=== PATIENT | female | born 1955 | race Caucasian/White ===

== ENCOUNTER → 2018-10-30 09:26 | Outpatient (CLI) | payer OTHER, SELFPAY ==
--- NOTE | 2018-10-30 09:31 | US_ITS ---
STUDY: ABDOMINAL ULTRASOUND - RIGHT UPPER QUADRANT REASON FOR VISIT: Female, 63 years old. Elevated liver enzymes TECHNIQUE: Ultrasound evaluation of the right upper quadrant was performed with real-time and static rubio-scale imaging. TECHNICAL QUALITY: Adequate. COMPARISON: None. FINDINGS: Liver: The liver measures 17.6 cm. There is increased echogenicity consistent with fatty infiltration. The bile ducts are within normal limits. There is hepatic color flow. The direction of portal flow is hepatopetal. There is no demonstrated mass lesion. Gallbladder: Normal distended gallbladder. The gallbladder wall measures 1.8 mm. There is a negative sonographic Dias's sign. There is no pericholecystic fluid. There are no gallstones. Common Bile Duct (C.B.D.): The common bile duct measures 3.1 mm. Pancreas: Normal size of the head, body and tail of the pancreas. There is normal echogenicity of the pancreas. There is no demonstrated pancreatic mass or cyst. Right Kidney: Normal size of the right kidney. The right kidney measures 10.6 x 6.1 x 4.5 cm. Normal renal cortex. The right cortex measures 1 cm. There is no demonstrated renal mass or cyst. There is no right hydronephrosis. US/Abdomen Limited IMPRESSION: Fatty liver. Gallbladder and common bile duct are unremarkable. Electronically Signed: Vipul Bryan MD at 13:31 EDT Tel , Service support ,
== END ==
PROVIDERS: Family Provider Family Medicine; PCP Family Medicine; Referring Provider Family Medicine; Visit Provider Family Medicine
DX: R94.5 Abnormal results of liver function studies (principal)
CPT/HCPCS: 76705

== ENCOUNTER → 2018-11-14 07:50 | Outpatient (CLI) | payer OTHER, SELFPAY ==
--- NOTE | 2018-11-14 08:03 | BI_ITS ---
MAMMOGRAPHY - BILATERAL SCREENING REASON FOR EXAM: Female, 63 years old. Routine annual screening examination. PERTINENT HISTORY: Aunt with breast cancer. Prior right stereotactic breast biopsies and left excisional breast biopsy. TECHNIQUE: Digital bilateral breast milagros (3D mammographic acquisition) in the CC and MLO projections. 2-D mediolateral oblique (MLO) and craniocaudad (CC) views of both breasts were obtained. CAD: Full Field Digital Mammography with Computer Added Detection was performed. COMPARISON: Comparison is made with prior examination dated January 01, 2017 and July 19, 2013. FINDINGS: Breast Composition: The breasts are heterogeneously dense, which may obscure small masses. There are no dominant masses or suspicious calcifications. There are 2 tissue clip markers in the superior retroareolar region of the right breast. A tissue clip marker is also seen in a 7.8 mm well-defined nodule in the inferior deep slightly medial aspect of the right breast. This is new as compared to prior study. No other significant abnormalities are identified. There has been no significant change since the prior study. BI/SCREENING MAMM (CAD), BILAT IMPRESSION: Stable bilateral screening mammogram. Yearly follow-up mammogram recommended. (A) ASSESSMENT CATEGORY: BIRADS Category 2: Benign. A letter regarding these results will be sent to the patient by the facility within 30 days. Approximately 10% of breast cancers are not detected by mammography. A normal mammogram should not delay biopsy of a clinically suspicious abnormality. [id number] Electronically Signed: Karan Prado, at 8:52 EDT , Service support ,
== END ==
PROVIDERS: Family Provider Family Medicine; PCP Family Medicine; Referring Provider Family Medicine; Visit Provider Family Medicine
DX: Z12.31 Encounter for screening mammogram for malignant neoplasm of breast (principal)
CPT/HCPCS: 77063; 77067

== ENCOUNTER → 2018-11-28 11:12 | Outpatient (CLI) | payer OTHER, SELFPAY ==
[2018-11-23 09:00] VITALS: BMI 32.8
--- NOTE | 2018-11-28 11:13 | NM_ITS ---
CLINICAL: 63-year-old female with reported history of postprandial abdominal pain. RADIONUCLIDE HEPATOBILIARY SCINTIGRAPHY COMPARISON: Abdominal ultrasound report 10/30/2018 FINDINGS: Following the intravenous administration of 5.4 mCi of 99m Tc Mebrofenin, hepatobiliary images reveal: 1. Relatively prompt and homogeneous radiopharmaceutical concentration is noted by a normal sized liver. No parenchymal defects are identified. 2. Gallbladder activity is identified at 45 minutes post radiopharmaceutical administration. 3. Small intestinal tract is observed at 10 minutes following tracer injection. 4. Washout of the radiopharmaceutical by the hepatic parenchyma appears qualitatively normal. Cholecystokinin (0.02 ug/kg) was administered intravenously over a 30-minute period. The post CCK gallbladder ejection fraction calculated at 20 minutes following Cholecystokinin administration was noted to be < 5 % (normal greater than 35%). There is scintigraphic evidence of post cholecystokinin duodenal-gastric reflux. NM/Hepatobilliary Img w/Pharm Int IMPRESSION: 1. ABNORMAL 99m Tc Mebrofenin hepatobiliary imaging examination with Cholecystokinin. A. A gallbladder ejection fraction calculated to be less than 35% following the administration of Cholecystokinin is consistent with the presence of functional hepatobiliary disease (gallbladder and/or sphincter of Oddi dyskinesia) and/or organic hepatobiliary disease (chronic acalculous cholecystitis and/or cystic duct syndrome) in patients with intermediate to high pretest probabilities of hepatobiliary illness. (Ritu Hebert et al, Journal of Nuclear Medicine 32:1695, 1990). B. There is scintigraphic evidence of post CCK duodenal-gastric reflux as described above. (Destin et al, Nucl Med Kathe [employer] pg. 35, 1980). Electronically Signed: Antione Thorne DO at 10:50 EDT Tel , Service support ,
== END ==
PROVIDERS: Family Provider Family Medicine; PCP Family Medicine; Referring Provider Surgery; Visit Provider Surgery
DX: R10.13 Epigastric pain (principal)
CPT/HCPCS: 78227; A9537; J2805

== ENCOUNTER 2018-11-30 08:20 | Day surgery (SDC) | payer OTHER, SELFPAY ==
--- NOTE | 2018-11-23 03:23 | HP_ITS ---
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 Is patient in pain?: No Allergies nitrile Allergy (Severe, Verified 11/23/18 09:19) shortness of breath and rash dexlansoprazole [From Dexilant] Allergy (Mild, Verified 11/23/18 09:02) Unknown pravastatin [From Pravachol] Allergy (Mild, Verified 11/23/18 09:02) Other Medications albuterol sulfate HFA 90 mcg/actuation aerosol inhaler 1 puff INHALATION Q6H PRN 11/23/18 [History Confirmed 11/23/18] esomeprazole magnesium 20 mg capsule,delayed release 20 mg PO DAILY cap 11/23/18 [History Confirmed 11/23/18] metronidazole 1 % topical gel 1 applic TOPICAL DAILY 11/23/18 [History Confirmed 11/23/18] montelukast 10 mg tablet 10 mg PO QPM 11/23/18 [History Confirmed 11/23/18] prednisone 20 mg tablet 40 mg PO ONCE #2 tab 11/23/18 [Rx Confirmed 11/23/18] ranitidine 150 mg tablet 150 mg PO DAILY 11/23/18 [History Confirmed 11/23/18] PFSH Medical History Acid reflux (Acute) Asthma (Acute) Environmental allergies (Acute) Surgical History Benign neoplasm of parotid gland (Acute) S/P lumpectomy, left breast (Acute) S/P tonsillectomy (Acute) S/P wisdom tooth extraction (Acute) Family History Father Hypertension Kidney disease Mother Diabetes Hypertension Thyroid disorder Grandmother Breast cancer Brother Heart disease Aunt Breast cancer Social History Smoking Status: Never smoker alcohol intake: never HPI HPI HPI: JASMINE MICHELLE is a 63 F who presents to the office today for HPI HPI Surgical H&P: Yes HPI: JASMINE MICHELLE, is a 63 F who presents to the office today for surgical consultation regarding epigastric pain and a positive Cologuard test. 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 She has had 2-month history of quite significant respiratory illness with upper respiratory tract infection aggravation of her asthma with bronchitis chronic sinusitis. She had been on steroids and increased inhaler therapy and antibiotics per for period of time she had been increasing her naproxen therapy. She then developed bandlike pain in the epigastrium. As of October 30, 2018 Dr. Gary Boogie obtained a gallbladder ultrasound at the [facility] this was normal.. October 17, 2018 liver hepatitis profile was normal. Liver function test notable for total bilirubin 0.5 alkaline phosphatase 631 AST 43 ALT 75. White blood cell count was 5000 with a hemoglobin 13.8 hematocrit 41.4 and platelet count 176,000 and a normal differential 5 to 6 years she has been on Nexium therapy. Because of the increased epigastric pain she was placed on ranitidine as well. In addition she was placed on Nasacort to help with her respiratory problems. She changed her diet to more of a bland diet trying to encourage use of yogurt but still had episodes of burning epigastric pain and nausea. She goes on to explain that the been a lot of stress recently particularly in caretaking for her mother. She has never previously had a colonoscopy. She has not previously had an upper endoscopy. She is concerned about any oral pharyngeal manipulation stating that this very frequently will acutely aggravate her chronic asthma. From her description of requiring high-dose steroids and inhalers and antibiotics she has recently come off 2 months of significant respiratory compromise. ROS General General: Yes weight change; no appetite, fatigue, colon cancer, breast cancer or weakness HEENT HEENT: No difficulty swallowing, eye injury, eye surgery, swollen glands or hoarseness Endo Endocrine: No thyroid disease, diabetes mellitus, thyroid cancer, Hair loss, heat intolerance or cold intolerance Skin Skin: Yes rash; no changing moles Breast Breast: No left breast lump, right breast lump, nipple discharge, breast pain, abnormal mammogram, abnormal US or breast enlargement Musc Musculoskeletal: Yes arthritis; no back problems, rheumatoid arthritis, gout or joint pain Cardio Cardiovascular: No murmur, pacemaker, heart disease, atrial fibrillation, high blood pressure, heart attack, heart stent, palpitations, shortness of breat with exertion or chest pain Psych Psychiatric: No depression, anxiety or hearing voices Resp Respiratory: No shortness of breath, No sleep apnea, Yes cough, No COPD, Yes asthma, No emphysema, No wheezing Gastro Gastrointestinal: Yes abdominal pain, Yes nausea or vomiting, No diarrhea, No constipation, No blood in stool, Yes acid reflux, Yes hemorrhoids, No ulcers, No gallbladder problem, No black,tarry stools Ken Hematologic: No blood thinners, No blood disorders, No bleeding, No anemia, No blood clots Neuro Neurologic: No system reviewed and no additional complaints, except as docu, No as per HPI, No abnormal walking, No abnormal hearing, No abnormal movements, No abnormal speech, No behavioral changes, No burning sensations, No confusion, No seizure-like activity, No unsteadiness, No dizziness, No localized weakness, No frequent falls, No headache(s), No lack of coordination, No loss of vision, No memory loss, No numbness, No other visual disturbances, No radiating pain, No restless legs, No sensory deficit, No fainting, No tingling, No tremor(s), No weakness, No other Exam Const General: cooperative, comfortable, no acute distress Nutritional Appearance: overweight Orientation: alert, awake, oriented x3 HENMT Head: normal to inspection Eyes General: appearance normal, both eyes and all related structures Chest Chest palpation & inspection: normal inspection of the chest Breast Palpation: No nipple discharge Resp Other: Clear throughout. Slightly diminished respiratory excursion Cardio Rate: regular rate Rhythm: regular rhythm Heart Sounds: no murmurs GI Palpation: soft, no hepatosplenomegaly Auscultation: normal bowel sounds Musc Cervical Spine: normal cervical lordosis Neuro Cognition: normal cognition Extrem General: no calf tenderness bilaterally Psych Affect: normal affect Assessment & Plan Problems 1. Epigastric pain R10.13 2. Positive colorectal cancer screening using Cologuard test R19.5 3. Asthma, unspecified asthma severity, unspecified whether complicated, unspecified whether persistent J45.909 Plan 63-year-old female. Two-point history of asthma exacerbation. Long-term use of proton pump inhibitors with addition of H2 feng to assist with epigastric pain with burning but also bandlike quality and unremarkable ultrasound. Abnormal liver function tests of undetermined etiology. I recommend a hepatobiliary scan to evaluate epigastric pain and because of the patient's abnormal liver function tests. I recommend a combined esophagogastroduodenoscopy with possible biopsy as well as colonoscopy with possible biopsy or polypectomy as indicated. She is aware of the technique, benefit, risks, alternatives. Because of the patient's asthma aggravation particularly with manipulation of the oropharynx I discussed her situation with Dr. Jaleel Bean anesthesiology who recommended the patient take prednisone 40 mg the day prior and that she would receive DuoNeb inhaler treatment prior to the procedure and that the monitored anesthesia care that would be utilized would be slightly deeper all an attempt to facilitate her periprocedural management. She is comfortable with this and we will schedule and proceed as noted. CC:Dr Gary Avalos M.D., F.A.C.S. Orders Orders: Colonoscopy Today R19.5 EGD Today R10.13 Hepatobilliary Img w/Pharm Int Today R10.13 Medications New: prednisone day prior to EGD 40 mg (2 x 20 mg) PO ONCE 2 tabs 0RF Coding Level of Care Code Off vis,new,level 3 Diagnoses Epigastric pain R10.13 ??Abdominal location: epigastric Positive colorectal cancer screening using Cologuard test R19.5 Asthma, unspecified asthma severity, unspecified whether complicated, unspecified whether persistent J45.909 ??Asthma severity: unspecified severity ??Asthma persistence: unspecified ??Asthma complication type: unspecified 11/23/18 1524 <Electronically signed by Ryan Avalos MD> Date Ryan Avalos MD I have re-examined the patient. There are no clinical changes since date of exam.
[2018-11-23 09:00] VITALS: BMI 32.8
[2018-11-30] VITALS (8 sets, daily range): BP systolic 104–167; BP diastolic 43–76; PULSE 72–88; RESP 16–18; TEMP 36.1–36.7; O2SAT 96–100; BMI 34.2
--- NOTE | 2018-11-30 | GASB_PTH ---
PATIENT: JASMINE MICHELLE LOC: EN U#:[id number] AGE/SX: 63/F ROOM: RE11/30/[address]: Dr. Ryan Avalos MD : 1955 BED: DIS: 11/30/2018 SPEC #: [id number] RECD: 11/30/18 12:28 STATUS: MARIAA MISBAH #: [id number] SOPHIA: 11/30/18 00:[address]: Ryan Avalos DEPT: SURGICAL PATHOLOGY RECD BY: Ritchie Medina ENTERED: 11/30/18 12:30 SP TYPE: Gastric Bx OTHR DR: Dr. Gary Boogie MD Tissues: A - Gastric mucous membrane B - Esophagus, NOS C - Cecum, NOS D - Transverse colon E - Transverse colon F - Descending colon Procedures: Surgery Specimen Level IV HEADER OPERATION: Colonoscopy, EGD ([facility]) PRE-OP DIAGNOSIS: Epigastric pain, positive Cologuard test TISSUE SUBMITTED: A - Antral biopsy and H. pylori, B - Distal esophageal biopsy, C - Cecal polyp, D - Mid transverse mass, E - Distal transverse polyp x3, F - Polyp descending colon MICROSCOPIC DIAGNOSIS A. Gastric antrum, biopsy: Mild to moderate chronic gastritis. Focal intestinal metaplasia without dysplasia. See comment. B. Distal esophagus, biopsy: No pathologic diagnosis. C. Cecal polyp, biopsy: Fragments of tubulovillous adenoma. D. Mid transverse colon mass, biopsy: Fragments of tubulovillous adenoma. E. Distal transverse colon polyp, biopsy: Fragments of tubular adenoma. F. Descending colon polyp, biopsy: Tubular adenoma. AM:cookie 12/04/18 COMMENT A. The results of immunohistochemistry for Helicobacter pylori will be reported separately ([id number]). MICROSCOPIC DESCRIPTION Slides are reviewed. GROSS DESCRIPTION A - Received in fixative is one container labeled with the patient's name and designated gastric antrum. The specimen consists of one irregular fragment of light darling soft tissue that measures 0.6 x 0.3 x 0.1 cm. The specimen is totally submitted in one cassette. B - Received in fixative is one container labeled with the patient's name and designated distal esophagus. The specimen consists of one irregular fragment of light darling soft tissue that measures 0.3 x 0.2 x <0.1 cm. The specimen is totally submitted in one cassette. C - Received in fixative is one container labeled with the patient's name and designated cecal polyp. The specimen consists of multiple irregular fragments of light darling soft tissue that in aggregate measure 0.5 x 0.2 x 0.1 cm. The specimen is totally submitted in one cassette. D - Received in fixative is one container labeled with the patient's name and designated transverse mass. The specimen consists of multiple irregular fragments of light darling soft tissue that in aggregate measure 0.5 x 0.2 x <0.1 cm. The specimen is totally submitted in one cassette. E - Received in fixative is one container labeled with the patient's name and designated distal transverse polyp. The specimen consists of multiple irregular fragments of light darling soft tissue that in aggregate measure 1.5 x 0.8 x 0.1 cm. The specimen is totally submitted in one cassette. F - Received in fixative is one container labeled with the patient's name and designated polyp descending colon. The specimen consists of one irregular fragment of light darling soft tissue that measures 0.2 x 0.2 x <0.1 cm. The specimen is totally submitted in one cassette. / AM:cookie 11/30/18 TC:5 CPT: 74948 x6
--- NOTE | 2018-11-30 09:15 | IMM_PTH ---
PATIENT: JASMINE MICHELLE LOC: EN U#:[id number] AGE/SX: 63/F ROOM: RE11/30/[address]: Dr. Ryan Avalos MD : 1955 BED: DIS: 11/30/2018 SPEC #: [id number] RECD: 11/30/18 14:37 STATUS: MARIAA RETamara #: [id number] SOPHIA: 11/30/18 09:[address]: Ryan Avalos DEPT: IMMUNOHISTOCHEMISTRY RECD BY: Hali Griffin ENTERED: 11/30/18 14:38 SP TYPE: IMMUNO OTHR DR: Dr. Gary Boogie MD Tissues: A - Stomach, NOS Procedures: H Pylori (initial) PHYSICIAN & INSTITUTION [place] [id number] SPECIMEN INFORMATION: Tissue Source: A - Antral biopsy Clinical Info: Epigastric pain, positive Cologuard test Specimen Number: [id number] CPT code: 26287 METHODOLOGY: Deparaffinized sections of prefer/formalin-fixed tissue or PAP/DQ stained slides are incubated with monoclonal/polyclonal antibodies/oligonucleotide probes. Localization is made via biotin free immunoperoxidase method. Appropriate controls are performed and reacted as expected. Results on target cell population are indicated in the following table: RESULTS: ANTIBODY / CLONE RESULT Block A H Pylori (polyclonal) negative These tests were developed and their performance characteristics determined by [facility]. They may not have been cleared or approved by the U.S. Food and Drug Administration. The FDA has determined that such clearance or approval is not necessary. INTERPRETATION: A. Antral biopsy: Negative for Helicobacter pylori organisms. AM:cookie 12/04/18
--- NOTE | 2018-11-30 10:27 | RAD_ITS ---
STUDY: X-RAY - ABDOMEN/PELVIS REASON FOR EXAM: Female, 63 years old. Abdominal pain. Staple placement. TECHNIQUE: Single AP view of the abdomen / pelvis. COMPARISON: None. FINDINGS: Gas is seen in the right hemicolon. A tissue clip marker is seen in the proximal transverse colon just distal to the hepatic flexure. The visualized liver, spleen and kidneys are grossly normal in size and morphology. Normal soft tissue structures. Degenerative changes of symphysis pubis. RAD/Abdomen Single View (Portable) IMPRESSION: A metallic marker is seen in the proximal transverse colon just distal to the hepatic flexure. Electronically Signed: Karan Prado, at 11:44 EDT , Service support ,
--- NOTE | 2018-11-30 10:36 | OP.ENDO_ITS ---
11/30/2018 Gary Boogie Re : Upper GI endoscopy procedure for Earlene Lopez Dear Chuyita This procedure was performed on Friday, November 30, 2018. My impressions and recommendations are as follows: Impressions : - Z-line regular, 40 cm from the incisors. Biopsied. - Small hiatal hernia. - Erythematous mucosa in the antrum. Biopsied. - Normal examined duodenum. Recommendations : - Discharge patient to home. - Resume previous diet. - Continue present medications. - Return to my office in 1 week. My findings are described in the full procedure note, which is enclosed. If I can be of further assistance, please feel free to contact me at Doctor phone number(s): Work: . Sincerely, Ryan Avalos MD 11/30/2018 10:35:52 AM This report has been signed electronically.
--- NOTE | 2018-11-30 10:43 | OP.ENDO_ITS ---
11/30/2018 Gary Boogie Re : Colonoscopy procedure for Earlene Armstrong Opaldemetriceelizabeth This procedure was performed on Friday, November 30, 2018. My impressions and recommendations are as follows: Impressions : - Hemorrhoids found on perianal exam. - Two 5 to 8 mm polyps in the cecum, removed with a cold biopsy forceps. Incomplete resection. Resected tissue retrieved. - One 45 mm polyp in the mid transverse colon. Biopsied. Tattooed. Clip was placed. - Three 4 to 7 mm polyps in the distal transverse colon, removed with a cold biopsy forceps. Resected and retrieved. - One 4 mm polyp in the descending colon, removed with a cold biopsy forceps. Resected and retrieved. Recommendations : - Discharge patient to home. - Resume previous diet. - Continue present medications. - Repeat colonoscopy in 1 year for surveillance. - Return to my office in 1 week to consider laparoscopic extended right colectomy with cholecystectomy My findings are described in the full procedure note, which is enclosed. If I can be of further assistance, please feel free to contact me at Doctor phone number(s): Work: . Sincerely, Ryan Avalos MD 11/30/2018 10:42:18 AM This report has been signed electronically.
--- NOTE | 2018-12-13 07:30 | COL_PTH ---
PATIENT: JASMINE MICHELLE LOC: EN U#:[id number] AGE/SX: 63/F ROOM: RE11/30/[address]: Dr. Ryan Avalos MD : [id number] BED: DIS: 11/30/2018 SPEC #: [id number] RECD: 12/13/18 10:48 STATUS: MARIAA CRAWLEY #: [id number] SOPHIA: 12/13/18 07:[address]: Ryan Avalos DEPT: SURGICAL PATHOLOGY RECD BY: Nneka Ramirez ENTERED: 12/13/18 13:40 SP TYPE: COLON OTHR DR: Dr. Gary Boogie MD Tissues: A - Colon, NOS B - Gallbladder, NOS Procedures: Surgery Specimen Level III Surgery Specimen Level V HEADER OPERATION: ERAS, Laparoscopic cholecystectomy PRE-OP DIAGNOSIS: Epigastric pain R10.13, positive colorectal cancer screening using colorectal test R19.5 TISSUE SUBMITTED: A. Right colon tissue, staple line, B. Gallbladder MICROSCOPIC DIAGNOSIS A. Right colon, hemicolectomy: Tubulovillous adenoma with focal high grade dysplasia (5 cm in greatest dimension). Tubulovillous adenoma (1 cm in greatest dimension). Eleven pericolonic lymph nodes with reactive changes. Anastomotic line, no pathologic diagnosis. B. Gallbladder, cholecystectomy: Chronic cholecystitis and cholesterolosis. No stones are identified in the container or in the gallbladder. SJ:cookie 12/17/18 COMMENT Please make reference to previous specimen ([id number]), cecal polyp, biopsy with diagnosis of fragments of tubulovillous adenoma and mid transverse colon mass, biopsy with diagnosis of fragments of tubulovillous adenoma and distal transverse colon polyp, biopsy with diagnosis of fragments of tubular adenoma and descending colon polyp, biopsy with diagnosis of tubular adenoma. Case has been reviewed in consultation with Dr. Navarro who concurs with the above diagnosis. IDC:AM MICROSCOPIC DESCRIPTION Slides are reviewed. GROSS DESCRIPTION A - Received in fixative is one container labeled with the patient's name and designated right colon tissue and staple line. The specimen consists of a right hemicolectomy specimen with attached adipose tissue and omentum consisting of cecum with ascending colon and segment of small intestine. The appendix is not identified. The cecum with ascending colon measures 22 cm in length and segment of small intestine measures 5.5 cm in length. Both resection margins are stapled. Two polyps are identified. The lumen is filled with bloody fluid. The larger polyp is present 5 cm away from the distal resection margin and measures 5 x 3 x 3 cm and one smaller polyp is present in the cecum 5 cm away from the ileocecal valve and measures 1 x 1 x 0.5 cm. The serosal surface overlying the larger polyp shows dye discoloration. The attached omentum measures 22 x 5 x 2 cm. Also present in the container is a staple line measuring 5 x 0.2 x 0.2 cm. More dictation will follow later. The pericolonic adipose is fixed in lymph node revealing solution. / SJ:rg 12/13/18 Sections of both polyps reveal entirely mucosal in location. No invasion into the underlying wall is noted. Sections of the omentum do not reveal any mass lesion. Sections of pericolonic adipose tissue reveal multiple lymph nodes. The largest lymph node measures 0.8 cm in greatest dimension. Digital Account Executive sections are submitted as follows: 1 - anastomotic line, 2 - proximal and distal resection margins, 3 - smaller polyp in the cecum, entirely submitted, 4-9 - larger polyp (cassettes 4-7 contains the stalk portion of the polyp, entirely submitted; about 80% of the polyp is submitted), 10 - ileocecal valve, small and large intestine, 11 - omentum, 12 - multiple lymph nodes, 13 - multiple lymph nodes, 14 - one bisected lymph nodes, 15 - one lymph node and two possible lymph nodes. / SJ:rg 12/14/18 B - Received is one container labeled with the patient's name and designated gallbladder. The specimen consists of a gallbladder measuring 7 cm in length and up to 3.5 cm in diameter. The external surface is pink-darling, smooth and glistening for the most part. Focally it is granular, hemorrhagic and contains cautery artifact. The gallbladder contains green-yellow mucoid bile. No stones are identified in the container or in the gallbladder. The mucosa also shows several yellowish streaks consistent with cholesterolosis. A few minute polyps consistent with cholesterolosis are also noted measuring 0.1 cm in greatest dimension. The gallbladder wall measures up to 0.3 cm in thickness. Digital Account Executive sections from the gallbladder and the cystic duct are submitted in one cassette. / CRIS:cookie 12/13/18 TC:1 CPT: 03408, 53557
== END 2018-11-30 11:24 | disposition home or self-care (01) ==
LOC: EN 08:21 → AC 08:22
PROVIDERS: Family Provider Family Medicine; PCP Family Medicine; Referring Provider Family Medicine; Visit Provider Surgery
PROC: 0DJD8ZZ Inspection of Lower Intestinal Tract, Via Natural or Artificial Opening Endoscopic (ICD-10-PCS; CPT 45378; principal; 2018-11-30 09:10)
DX: D12.0 Benign neoplasm of cecum (principal); D12.3 Benign neoplasm of transverse colon; D12.4 Benign neoplasm of descending colon; K29.50 Unspecified chronic gastritis without bleeding; K44.9 Diaphragmatic hernia without obstruction or gangrene; K64.9 Unspecified hemorrhoids; K21.9 Gastro-esophageal reflux disease without esophagitis; J45.909 Unspecified asthma, uncomplicated; Z79.52 Long term (current) use of systemic steroids; Z79.899 Other long term (current) drug therapy; Z87.442 Personal history of urinary calculi
CPT/HCPCS: 43239; 45380; 45381; 74018; 88304; 88305; 88307; 88342; 94640; J7120; A4216; A4648; J2405

== ENCOUNTER 2018-12-13 05:36 | Inpatient (IN) | payer OTHER, SELFPAY ==
[2018-11-30 08:49] VITALS: BMI 34.2
[2018-12-06 10:08] VITALS: BMI 34.2
[2018-12-07 10:40] VITALS: BP 174/88; PULSE 75; RESP 16; TEMP 37.4; O2SAT 99; BMI 34.7
--- NOTE | 2018-12-07 10:57 | SDCEKG_ITS ---
Test Reason : Blood Pressure : / mmHG Vent. Rate : 075 BPM Atrial Rate : 075 BPM P-R Int : 160 ms QRS Dur : 096 ms QT Int : 384 ms P-R-T Axes : 039 028 037 degrees QTc Int : 428 ms Sinus rhythm with Premature ventricular complexes Otherwise normal ECG Confirmed by DANNA MILLER, MARY ([id number]), marketing editor TIFFANIE ALEGRE ([id number]) on 12/19/2018 1:34:35 PM Referred By: Ryan Avalos Confirmed By:MARY CLAY MD
--- NOTE | 2018-12-07 11:15 | RAD_ITS ---
STUDY: X-RAY CHEST REASON FOR EXAM: Female, 63 years old. Preoperative evaluation. TECHNIQUE: PA and lateral views of the chest. COMPARISON: None. FINDINGS: The lungs are clear and expanded. Scattered calcified granulomas. There is no demonstrated pleural abnormality. Normal size heart. Normal mediastinum and dong. Normal visualized pulmonary arteries. Normal visualized aortic arch and descending thoracic aorta. There are degenerative changes of the visualized thoracic spine. Normal visualized ribs, clavicles, and shoulders. There is no demonstrated abnormality of the visualized soft tissue structures of the upper abdomen. RAD/Chest PA and Lateral IMPRESSION: Normal x-ray examination of the chest. Electronically Signed: Karan Prado, at 13:12 EDT , Service support ,
[2018-12-07 11:31] LABS: Absolute Lymphocyte Count 1.97 X10^3/ul (0.83-4.51); Absolute Neutrophil Count 3.6 X10^3/uL (2.0-7.7); Basophil# 0.03 X10^3/uL; Basophil% 0.5 % (0-1); Eosinophil# 0.22 X10^3/uL; Eosinophils% 3.4 % (0-5); Hematocrit 44.1 % (37-47); Hemoglobin 14.8 g/dl (12.0-15.0); Lymphocyte # 1.97 X10^3/ul (4.0); Lymphocyte % 30.7 % (19-41); Mean Corp Hgb Conc 33.6 g/gl (32-36); Mean Corpuscular Hgb 29.1 pg (27.0-32.0); Mean Corpuscular Volume 86.6 fL (81-99); Mean Platelet Vol. 10.6 fl (6.2-12.0); Monocyte# 0.56 X10^3/uL; Monocyte% 8.7 % (0-10); Neutrophil # 3.62 X10^3/uL (2.7-7.7); Neutrophil % 56.5 % (47-70); Platelet Count 217 K/mm3 (150-450); RBC Distribution Width CV 12.8 % (11.6-14.6); Red Blood Count 5.09 M/mm3 (4.2-5.4); White Blood Count 6.4 K/mm3 (4.4-11.0)
[2018-12-07 11:35] LABS: POSITIVE COUNT NO; POSITIVE DIFFERENTIAL NO; POSITIVE MORPHOLOGY NO
[2018-12-07 12:02] LABS: Anion Gap 6 (5-15); BUN 8 mg/dL (7-18); BUN/Creat Ratio 8.7 RATIO (10-20); Calcium,Total 9.2 mg/dL (8.5-10.1); Chloride 109 mmol/L (98-107); Creatinine, Serum 0.92 mg/dL (0.55-1.02); EST Glomerular Filtration Rate 66 mL/min (>60); Est Glom Filt Rate - Afr Amer 80 mL/min (>60); Estimated Creatinine Clearance 64.78 ml/min; Glucose 123 mg/dL (74-106); Potassium 3.8 mmol/L (3.5-5.1); Sodium Level 143 mmol/L (136-145)
[2018-12-13] VITALS (14 sets, daily range): BP systolic 108–162; BP diastolic 55–85; PULSE 60–93; RESP 16–20; TEMP 36.3–37.4; O2SAT 98–100; BMI 34.7
--- NOTE | 2018-12-13 05:52 | HP.PCM_ITS ---
Problem List (1) Cholecystitis Status: Acute (2) Tubulovillous adenoma of colon Status: Acute History and Physical Date of Admission: 12/13/18 MR#: [id number] Acct: [id number] Name: EARLENE MICHELLE Rep #: [id number] : 1955 Provider: Ryan Avalos MD Age/Sex: 63/F Location: [facility] Status: Signed Intake Vital Signs 12/06/18 Body Mass Index (BMI) 34.2 Intake Visit Reasons: c-scope 11/30/18/to discuss surgery & GB Allergies nitrile Allergy (Severe, Verified 11/30/18 08:45) shortness of breath and rash dexlansoprazole [From Dexilant] Allergy (Mild, Verified 11/30/18 08:45) Unknown erythromycin base Allergy (Verified 11/30/18 08:45) Rash Fish Containing Products Allergy (Verified 11/30/18 08:45) Rash fish derived Allergy (Verified 11/30/18 08:45) Rash fish oil Allergy (Verified 11/30/18 08:45) Rash lansoprazole [From Prevacid] Allergy (Verified 11/30/18 08:45) Other shellfish derived Allergy (Verified 11/30/18 08:45) Anaphylaxis Medications esomeprazole magnesium 20 mg capsule,delayed release 20 mg PO DAILY cap 11/23/18 [History Confirmed 11/27/18] metronidazole 1 % topical gel 1 applic TOPICAL DAILY 11/23/18 [History Confirmed 11/27/18] montelukast 10 mg tablet 10 mg PO QPM 11/23/18 [History Confirmed 11/27/18] prednisone 20 mg tablet 40 mg PO ONCE #2 tab 11/23/18 [Rx Confirmed 11/27/18] ranitidine 150 mg tablet 150 mg PO DAILY 11/23/18 [History Confirmed 11/27/18] Albuterol Aerosols [Ventolin Aerosols] 2.5 mg INHALATION Q6H PRN PRN 11/27/18 [History Confirmed 11/27/18] Albuterol IH (ProAir) [Proair Hfa (SP)Vent Pts] 1 - 2 puff INHALATION Q4H PRN PRN 11/27/18 [History Confirmed 11/30/18] PFSH Medical History Cholecystitis (Acute) Gastritis (Acute) Tubulovillous adenoma of colon (Acute) Asthma (Acute) Positive colorectal cancer screening using Cologuard test (Acute) Abdominal pain (Acute) Acid reflux (Acute) Asthma (Acute) Environmental allergies (Acute) Surgical History Benign neoplasm of parotid gland (Acute) History of colonoscopy (Acute ~11/30/18) History of esophagogastroduodenoscopy (EGD) (Acute ~11/30/18) S/P lumpectomy, left breast (Acute) S/P tonsillectomy (Acute) S/P wisdom tooth extraction (Acute) Family History Father Hypertension Kidney disease Mother Diabetes Hypertension Thyroid disorder Grandmother Breast cancer Brother Heart disease Aunt Breast cancer Social History Smoking Status: Never smoker alcohol intake: never HPI HPI HPI: EARLENE MICHELLE, is a 63 F who presents to the office today for HPI HPI Surgical H&P: Yes HPI: EARLENE MICHELLE, is a 63 F who presents to the office today for surgical follow-up regarding evaluation of epigastric pain as well as positive Cologuard test. My previous history and physical is as follows. Subsequent to that I will include the testing that ensued. 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 [employer] Member Required: No Is patient in pain?: No Allergies nitrile Allergy (Severe, Verified 11/23/18 09:19) shortness of breath and rash dexlansoprazole [From Dexilant] Allergy (Mild, Verified 11/23/18 09:02) Unknown pravastatin [From Pravachol] Allergy (Mild, Verified 11/23/18 09:02) Other Medications albuterol sulfate HFA 90 mcg/actuation aerosol inhaler 1 puff INHALATION Q6H PRN 11/23/18 [History Confirmed 11/23/18] esomeprazole magnesium 20 mg capsule,delayed release 20 mg PO DAILY cap 11/23/18 [History Confirmed 11/23/18] metronidazole 1 % topical gel 1 applic TOPICAL DAILY 11/23/18 [History Confirmed 11/23/18] montelukast 10 mg tablet 10 mg PO QPM 11/23/18 [History Confirmed 11/23/18] prednisone 20 mg tablet 40 mg PO ONCE #2 tab 11/23/18 [Rx Confirmed 11/23/18] ranitidine 150 mg tablet 150 mg PO DAILY 11/23/18 [History Confirmed 11/23/18] [facility] Medical History Acid reflux (Acute) Asthma (Acute) Environmental allergies (Acute) Surgical History Benign neoplasm of parotid gland (Acute) S/P lumpectomy, left breast (Acute) S/P tonsillectomy (Acute) S/P wisdom tooth extraction (Acute) Family History Father Hypertension Kidney disease Mother Diabetes Hypertension Thyroid disorder Grandmother Breast cancer Brother Heart disease Aunt Breast cancer Social History Smoking Status: Never smoker alcohol intake: never HPI HPI HPI: EARLENE MICHELLE, is a 63 F who presents to the office today for HPI HPI Surgical H&P: Yes HPI: EARLENE MICHELLE, is a 63 F who presents to the office today for surgical consu ltation regarding epigastric pain and a positive Cologuard test. 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 She has had 2-month history of quite significant respiratory illness with upper respiratory tract infection aggravation of her asthma with bronchitis chronic sinusitis. She had been on steroids and increased inhaler therapy and antibiotics per for period of time she had been increasing her naproxen therapy. She then developed bandlike pain in the epigastrium. As of October 30, 2018 Dr. Gary Boogie obtained a gallbladder ultrasound at the [facility] this was normal.. October 17, 2018 liver hepatitis profile was normal. Liver function test notable for total bilirubin 0.5 alkaline phosphatase 631 AST 43 ALT 75. White blood cell count was 5000 with a hemoglobin 13.8 hematocrit 41.4 and platelet count 176,000 and a normal differential 5 to 6 years she has been on Nexium therapy. Because of the increased epigastric pain she was placed on ranitidine as well. In addition she was placed on Nasacort to help with her respiratory problems. She changed her diet to more of a bland diet trying to encourage use of yogurt but still had episodes of burning epigastric pain and nausea. She goes on to explain that the been a lot of stress recently particularly in caretaking for her mother. She has never previously had a colonoscopy. She has not previously had an upper endoscopy. She is concerned about any oral pharyngeal manipulation stating that this very frequently will acutely aggravate her chronic asthma. From her description of requiring high-dose steroids and inhalers and antibiotics she has recently come off 2 months of significant respiratory compromise. ROS General General: Yes weight change; no appetite, fatigue, colon cancer, breast cancer or weakness HEENT HEENT: No difficulty swallowing, eye injury, eye surgery, swollen glands or hoarseness Endo Endocrine: No thyroid disease, diabetes mellitus, thyroid cancer, Hair loss, heat intolerance or cold intolerance Skin Skin: Yes rash; no changing moles Breast Breast: No left breast lump, right breast lump, nipple discharge, breast pain, abnormal mammogram, abnormal US or breast enlargement Musc Musculoskeletal: Yes arthritis; no back problems, rheumatoid arthritis, gout or joint pain Cardio Cardiovascular: No murmur, pacemaker, heart disease, atrial fibrillation, high blood pressure, heart attack, heart stent, palpitations, shortness of breat with exertion or chest pain Psych Psychiatric: No depression, anxiety or hearing voices Resp Respiratory: No shortness of breath, No sleep apnea, Yes cough, No COPD, Yes asthma, No emphysema, No wheezing Gastro Gastrointestinal: Yes abdominal pain, Yes nausea or vomiting, No diarrhea, No constipation, No blood in stool, Yes acid reflux, Yes hemorrhoids, No ulcers, No gallbladder problem, No black,tarry stools Ken Hematologic: No blood thinners, No blood disorders, No bleeding, No anemia, No blood clots Neuro Neurologic: No system reviewed and no additional complaints, except as docu, No as per HPI, No abnormal walking, No abnormal hearing, No abnormal movements, No abnormal speech, No behavioral changes, No burning sensations, No confusion, No seizure-like activity, No unsteadiness, No dizziness, No localized weakness, No frequent falls, No headache(s), No lack of coordination, No loss of vision, No memory loss, No numbness, No other visual disturbances, No radiating pain, No restless legs, No sensory deficit, No fainting, No tingling, No tremor(s), No weakness, No other Exam Const General: cooperative, comfortable, no acute distress Nutritional Appearance: overweight Orientation: alert, awake, oriented x3 HENMT Head: normal to inspection Eyes General: appearance normal, both eyes and all related structures Chest Chest palpation & inspection: normal inspection of the chest Breast Palpation: No nipple discharge Resp Other: Clear throughout. Slightly diminished respiratory excursion Cardio Rate: regular rate Rhythm: regular rhythm Heart Sounds: no murmurs GI Palpation: soft, no hepatosplenomegaly Auscultation: normal bowel sounds Musc Cervical Spine: normal cervical lordosis Neuro Cognition: normal cognition Extrem General: no calf tenderness bilaterally Psych Affect: normal affect Assessment & Plan Problems 1. Epigastric pain R10.13 2. Positive colorectal cancer screening using Cologuard test R19.5 3. Asthma, unspecified asthma severity, unspecified whether complicated, unspecified whether persistent J45.909 Plan 63-year-old female. Two-point history of asthma exacerbation. Long-term use of proton pump inhibitors with addition of H2 feng to assist with epigastric pain with burning but also bandlike quality and unremarkable ultrasound. Abnormal liver function tests of undetermined etiology. I recommend a hepatobiliary scan to evaluate epigastric pain and because of the patient's abnormal liver function tests. I recommend a combined esophagogastroduodenoscopy with possible biopsy as well as colonoscopy with possible biopsy or polypectomy as indicated. She is aware of the technique, benefit, risks, alternatives. Because of the patient's asthma aggravation particularly with manipulation of the oropharynx I discussed her situation with Dr. Jaleel Bean anesthesiology who recommended the patient take prednisone 40 mg the day prior and that she would receive DuoNeb inhaler treatment prior to the procedure and that the monitored anesthesia care that would be utilized would be slightly deeper all an attempt to facilitate her periprocedural management. She is comfortable with this and we will schedule and proceed as noted. CC:Dr Gary Avalos M.D., F.A.C.S. Orders Orders: Colonoscopy Today R19.5 EGD Today R10.13 Hepatobilliary Img w/Pharm Int Today R10.13 Medications New: prednisone day prior to EGD 40 mg (2 x 20 mg) PO ONCE 2 tabs 0RF Coding Level of Care Code Off vis,new,level 3 Diagnoses Epigastric pain R10.13 Abdominal location: epigastric Positive colorectal cancer screening using Cologuard test R19.5 Asthma, unspecified asthma severity, unspecified whether complicated, unspecified whether persistent J45.909 Asthma severity: unspecified severity Asthma persistence: unspecified Asthma complication type: unspecified 11/23/18 1524<Electronically signed by Ryan Avalos MD> Date Ryan Avalos MD Cosigner Signature:Date (if applicable) CC: Gary Boogie MD ~ [facility] Imaging Services [address] [place] [id number] Hepatobilliary Img w/Pharm Int MR#: [id number] Name: EARLENE MICHELLE [facility] #:[id number] : 8F [id number] From: Antione Thorne DO PCP:Gary Boogie MD Status:[facility] Study:Hepatobilliary Img w/Pharm Int Date of Exam:11/28/18 Exam#[id number] Ordering Dr: Ryan Avalos MD CLINICAL: 63-year-old female with reported history of postprandial abdominal pain. RADIONUCLIDE HEPATOBILIARY SCINTIGRAPHY COMPARISON: Abdominal ultrasound report 10/30/2018 FINDINGS: Following the intravenous administration of 5.4 mCi of 99m Tc Mebrofenin, hepatobiliary images reveal: 1. Relatively prompt and homogeneous radiopharmaceutical concentration is noted by a normal sized liver. No parenchymal defects are identified. 2. Gallbladder activity is identified at 45 minutes post radiopharmaceutical administration. 3. Small intestinal tract is observed at 10 minutes following tracer injection. 4. Washout of the radiopharmaceutical by the hepatic parenchyma appears qualitatively normal. Cholecystokinin (0.02 ug/kg) was administered intravenously over a 30-minute period. The post CCK gallbladder ejection fraction calculated at 20 minutes following Cholecystokinin administration was noted to be < 5 % (normal greater than 35%). There is scintigraphic evidence of post cholecystokinin duodenal-gastric reflux. NM/Hepatobilliary Img w/Pharm Int IMPRESSION: 1. ABNORMAL 99m Tc Mebrofenin hepatobiliary imaging examination with Cholecystokinin. A. A gallbladder ejection fraction calculated to be less than 35% following the administration of Cholecystokinin is consistent with the presence of functional hepatobiliary disease (gallbladder and/or sphincter of Oddi dyskinesia) and/or organic hepatobiliary disease (chronic acalculous cholecystitis and/or cystic duct syndrome) in patients with intermediate to high pretest probabilities of hepatobiliary illness. (Ritu Hebert et al, Journal of Nuclear Medicine 32:1695, 1990). B. There is scintigraphic evidence of post CCK duodenal-gastric reflux as described above. (Destin et al, Nucl Med Kathe [employer] pg. 35, 1980). Electronically Signed: Antione Thorne DO at 10:50 EDT Tel , Service support , [facility] Medical Records Department [address] [place] [address] Operative Report - Endoscopy MR#: [id number] Name: EARLENE MICHELLE [facility] #:[id number] : [id number]: Ryan Avalos MD PCP:Gary Boogie MD Status:[facility] 11/30/2018 Gary Boogie Re : Colonoscopy procedure for Earlene Michelle Dear Chuyita This procedure was performed on Friday, November 30, 2018. My impressions and recommendations are as follows: Impressions : - Hemorrhoids found on perianal exam. - Two 5 to 8 mm polyps in the cecum, removed with a cold biopsy forceps. Incomplete resection. Resected tissue retrieved. - One 45 mm polyp in the mid transverse colon. Biopsied. Tattooed. Clip was placed. - Three 4 to 7 mm polyps in the distal transverse colon, removed with a cold biopsy forceps. Resected and retrieved. - One 4 mm polyp in the descending colon, removed with a cold biopsy forceps. Resected and retrieved. Recommendations : - Discharge patient to home. - Resume previous diet. - Continue present medications. - Repeat colonoscopy in 1 year for surveillance. - Return to my office in 1 week to consider laparoscopic extended right colectomy with cholecystectomy My findings are described in the full procedure note, which is enclosed. If I can be of further assistance, please feel free to contact me at Doctor phone number(s): Work: . Sincerely, Ryan Avalos MD 11/30/2018 10:42:18 AM This report has been signed electronically. 11/30/18 1042 Date Ryan Avalos MD Cosigner Signature:Date (if indicated) CC: Gary Boogie MD; Ryan Avalos MD ~ Date Dictated:11/30/18 1002 Date Transcribed: Web Merchandiser:ODALYS Signed [facility] Medical Records Department [address] [place] [address] Operative Report - Endoscopy MR#: [id number] Name: EARLENE MICHELLE [facility] #:[id number] : [id number]: Ryan Avalos MD PCP:Gary Boogie MD Status:[facility] 11/30/2018 Gary Boogie Re : Upper GI endoscopy procedure for Earlene John Dear Chuyita This procedure was performed on Friday, November 30, 2018. My impressions and recommendations are as follows: Impressions : - Z-line regular, 40 cm from the incisors. Biopsied. - Small hiatal hernia. - Erythematous mucosa in the antrum. Biopsied. - Normal examined duodenum. Recommendations : - Discharge patient to home. - Resume previous diet. - Continue present medications. - Return to my office in 1 week. My findings are described in the full procedure note, which is enclosed. If I can be of further assistance, please feel free to contact me at Doctor phone number(s): Work: . Sincerely, Ryan Avalos MD 11/30/2018 10:35:52 AM This report has been signed electronically. 11/30/18 1035 Date Ryan Avalos MD [address] [facility] [address]PART[facility] LABORATORYSURGICAL [id number] [place], [place] [phone] Page 1of 2The contents of this transmission are privileged, confidential and exempt from disclosureunder applicable law. If you have received this information in error, call . EARLENE MICHELLE MR# [id number]: EARLENE MICHELLE/Sex: 63/[address]:Dina #: [id number] Unit #: [id number]: ENDOB: 1955Status:DEP SDCFacility:JOYCE Spec# :[id number] SpecDate: 11/30/18[facility] Dr: Bailey MILLER,[facility] Type: GASBOPERATION: Colonoscopy, EGD ([facility])PRE-OP DIAGNOSIS: Epigastric pain, positive Cologuard testTISSUE SUBMITTED: A ?Antral biopsy and H. pylori,B ?Distal esophageal biopsy, C ?Cecal polyp,D ?Mid transverse mass, E ?Distal transverse polyp x3, F ?Polyp descending colon MICROSCOPIC DIAGNOSISA. Gastric antrum, biopsy:Mild to moderate chronic gastritis. Focal intestinal metaplasia without dysplasia.See comment.B. Distal esophagus, biopsy:No pathologic diagnosis.C. Cecal polyp, biopsy:Fragments of tubulovillous adenoma.D. Mid transverse colon mass, biopsy:Fragments of tubulovillous adenoma.E. Distal transverse colon polyp,biopsy:Fragments of tubular adenoma.F. Descending colon polyp, biopsy:Tubular adenoma. AM:cookie 12/04/18COMMENTA. The results of immunohistochemistry for Helicobacter pylori will be reported separately ([id number]).MICROSCOPIC DESCRIPTIONSlides are reviewed.GROSS DESCRIPTIONA -Received in fixative is one container labeled with the patient's name and designated gastric antrum. The specimen consists of one irregular fragment of light darling soft tissue that measures 0.6 x 0.3 x 0.1 cm. Thespecimen is totally submitted in one cassette.B -Received in fixative is one container labeled with the patient's name and designated distal esophagus. The specimen consists of one irregular fragment of light darling soft tissue that measures 0.3 x 0.2 x<0.1 cm. The specimen is totally submitted in one cassette. [facility] LABORATORYSURGICAL [id number] [facility] [place], [place] [phone] Page 2of 2The contents of this transmission are privileged, confidential and exempt from disclosureunder applicable law. If you have received this information in error, call . EARLENE MICHELLE MR# [id number] - Received in fixative is one container labeled with the patient's name and designated cecal polyp. The specimen consists of multiple irregular fragments of light darling soft tissue that in aggregate measure 0.5 x 0.2 x 0.1 cm. The specimen is totally submitted in one cassette. D -Received in fixative is one container labeled with the patient's name and designated transverse mass. The specimen consists of multiple irregular fragments of light darling soft tissue that in aggregate measure 0.5 x 0.2 x <0.1 cm. The specimen is totally submitted in one cassette. E -Received in fixative is one container labeled with the patient's name and designated distal transverse polyp. The specimen consists of multiple irregular fragments of light darling soft tissue that in aggregate measure 1.5 x 0.8 x 0.1 cm. The specimen is totally submitted in one cassette. F -Received in fixative is one container labeled with the patient's name and designated polyp descending colon. The specimen consists of one irregular fragment of light darling soft tissue that measures 0.2 x 0.2 x <0.1 cm. The specimen is totally submitted in one cassette. / AM:cookie 11/30/18 TC:5CPT: [id number] x6 Electronically Signed by: Dr. Kenyon Navarro DO 05/28/19 1344 Be specific the patient had 2 cecal polyps which were tubulovillous adenoma. A large polyp in the proximal transverse colon which was a tubulovillous adenoma. This area was Josefina ink marked and marked with a clip. Plain abdominal films taken postsurgical demonstrate the marking clip to be in the proximal transverse colon. She had polyps in the distal transverse colon and the descending colon which were removed and were tubular adenomas. No evidence of malignancy was identified at the time of the biopsies but the proximal transverse colon polyp is very large. As noted preoperatively her Cologuard was positive. ROS General General: Yes weight change; no appetite, fatigue, colon cancer, breast cancer or weakness HEENT HEENT: No difficulty swallowing, eye injury, eye surgery, swollen glands or hoarseness Endo Endocrine: No thyroid disease, diabetes mellitus, thyroid cancer, Hair loss, heat intolerance or cold intolerance Skin Skin: Yes rash; no changing moles Breast Breast: No left breast lump, right breast lump, nipple discharge, breast pain, abnormal mammogram, abnormal US or breast enlargement Musc Musculoskeletal: Yes arthritis; no back problems, rheumatoid arthritis, gout or joint pain Cardio Cardiovascular: No murmur, pacemaker, heart disease, atrial fibrillation, high blood pressure, heart attack, heart stent, palpitations, shortness of breat with exertion or chest pain Psych Psychiatric: No depression, anxiety or hearing voices Resp Respiratory: No shortness of breath, No sleep apnea, Yes cough, No COPD, Yes asthma, No emphysema, No wheezing Gastro Gastrointestinal: Yes abdominal pain, Yes nausea or vomiting, No diarrhea, No constipation, No blood in stool, Yes acid reflux, Yes hemorrhoids, No ulcers, No gallbladder problem, No black,tarry stools Ken Hematologic: No blood thinners, No blood disorders, No bleeding, No anemia, No blood clots Neuro Neurologic: No weakness Exam Chest Breast Palpation: No nipple discharge Cardio Heart Sounds: no murmurs Assessment & Plan Problems 1. Tubulovillous adenoma of colon D12.6 2. Acute gastritis without hemorrhage, unspecified gastritis type K29.00 3. Cholecystitis K81.9 Plan 63-year-old female. Prior to her combined upper and lower endoscopy she took prednisone 40 mg orally the day prior and prior to her intervention she had a respiratory therapy administered protocol per anesthesia Dr. Jaleel Bean. The patient performed well with that procedure. She states that she has easy aggravation of her asthmatic bronchitis but this protocol helped alleviate that. Her upper endoscopy demonstrated H. pylori negative gastritis. Recommendations will be for her to continue ranitidine 150 mg orally in the morning and esomeprazole 20 mg in the evening. She is to continue this program through her tentative surgery date. The patient has absolutely nonfilling of her gallbladder on hepatobiliary imaging. I believe that her gallbladder is the etiology to her epigastric right upper quadrant pain. In detail with her present I described my recommendations for laparoscopic cholecystectomy with selective cholangiography. She is aware of the technique, benefit, risks, alternatives. I recommend that we combine this with her colon procedure. The patient had tubulovillous adenomas mostly resected from the cecum. She has a very large tubulovillous adenoma of the proximal transverse colon which was Josefina ink marked and marked with as hemostatic clip. I am recommending a extended right colectomy in combination with her cholecystectomy. The polyps that were identified in the left half of the colon were only tubular adenomas and I am recommending then strict postoperative follow-up colonoscopy at 1 year. Although no evidence of malignancy has been identified the polyp in the proximal transverse colon is very large and she is aware of the potential. I believe that I can offer her a combined laparoscopic right colectomy as well as laparoscopic cholecystectomy same setting. In detail we have discussed the technique, benefit, risks, alternatives I anticipate utilizing a enhanced recovery protocol. As noted above I recommend treating her asthma with a preoperative dose of steroids prednisone 40 mg day preop and will recommend respiratory therapy treatment prior to her general anesthesia. She has had an opportunity to ask and have questions answered. I am recommending that we pursue this 1 week from now. The patient will contact us as to whether she concurs or whether she wants to delay it until January. I appreciate the opportunity of assisting with her surgical care. CC: Dr. Gary Avalos M.D., F.A.C.S. Coding Level of Care Code Off vis,est,level 3 Diagnoses Tubulovillous adenoma of colon D12.6 Acute gastritis without hemorrhage, unspecified gastritis type K29.00 ??Gastritis type: unspecified gastritis ??Chronicity: acute ??Gastritis bleeding: without bleeding Cholecystitis K81.9 12/06/18 1018 <Electronically signed by Ryan Avalos MD> Date Ryan Joyner Signature: Date (if applicable) CC: Gary Boogie MD ~ I have re-examined the patient. There are no clinical changes since date of exam.
[2018-12-13] MEDS: Acetaminophen 500 MG Tablet 1000 MG PO (06:27)
[2018-12-13] MEDS: Gabapentin 600 MG Tablet PO (06:27)
[2018-12-13] MEDS: Lactated Ringers 1,000 ML 40 ML IV (06:32)
[2018-12-13] MEDS: Magnesium Sulfate 4gm/100mL 4 GM/100 ML IV.SOLN. IV (06:33)
[2018-12-13 06:36] LABS: Bedside Glucose 160 mg/dL (70-110)
[2018-12-13] MEDS: Ipratropium/Albuterol Sulfate 3 ML AMPUL.NEB INHALATION (07:00)
--- NOTE | 2018-12-13 07:32 | DCINST_ITS ---
Discharge Diet: Light diet - advance as tolerated - if you have questions about your diet instructions, please talk to you doctor. Discharge Activity: May Not Drive - for 3-5 days or while taking narcotic pain medicine. May shower in (days): 1 Lifting Restrictions: 10 pounds Call your doctor if your incision/area has: Continuous Slow Oozing, Sudden Increased Bleeding, Increased Pain/ Swelling, Increased Redness, Foul Smelling Discharge Call your doctor if you observe: Fever of 101 or Higher Suture Line Care: Avoid Pulling/Pushing, Avoid Pinching/Bending Additional Dressing/Incision Instructions:: Change or remove dressing in2 days. Leave steri-strips in place for 1 week. Allergies/Adverse Reactions: Allergies nitrile Allergy (Severe, Verified 12/13/18 06:06) shortness of breath and rash dexlansoprazole [From Dexilant] Allergy (Mild, Verified 12/13/18 06:06) Unknown bee pollen Allergy (Verified 12/13/18 06:06) Anaphylaxis bee venom protein (honey bee) Allergy (Verified 12/13/18 06:06) Anaphylaxis erythromycin base Allergy (Verified 12/13/18 06:06) Rash Fish Containing Products Allergy (Verified 12/13/18 06:06) Rash fish derived Allergy (Verified 12/13/18 06:06) Rash fish oil Allergy (Verified 12/13/18 06:06) Rash lansoprazole [From Prevacid] Allergy (Verified 12/13/18 06:06) Other shellfish derived Allergy (Verified 12/13/18 06:06) Anaphylaxis WAX FROM FLOORS Allergy (Uncoded 12/07/18 11:08) Other Medications to take at Discharge esomeprazole magnesium 20 mg capsule,delayed release 20 mg PO DAILY cap 11/23/18 metronidazole 1 % topical gel 1 applic TOPICAL DAILY 11/23/18 montelukast 10 mg tablet 10 mg PO QPM 11/23/18 ranitidine 150 mg tablet 150 mg PO DAILY 11/23/18 Albuterol Aerosols [Ventolin Aerosols] 2.5 mg INHALATION Q6H PRN PRN 11/27/18 Albuterol IH (ProAir) [Proair Hfa (SP)Vent Pts] 1 - 2 puff INHALATION Q4H PRN PRN 11/27/18 metronidazole 500 mg tablet 500 mg PO .COMPLEX #6 tab 12/10/18 neomycin 500 mg tablet 500 mg PO .COMPLEX #3 tab 12/10/18 prednisone 20 mg tablet 40 mg PO ONCE #2 tab 12/10/18 Amox/Clavulanate Tablet [Augmentin Tablet] 875 mg PO Q12H 12/13/18 Primary Care Physician: Gary Boogie MD [Primary Care Provider] - Test Results: Test results from this visit will be discussed in further detail at your follow- up appointment, if applicable. Please Follow Up With: Ryan Avalos MD - [phone] When: Call to make an appointment to be seen in about 10 days.
[2018-12-13] MEDS: Lidocaine/D5W 2,000 MG/250 ML IV.SOLN 2000 MG (07:50)
[2018-12-13] MEDS: Bupivacaine 0.25% 30 ML Vial (10:56)
[2018-12-13] MEDS: BUPIVACAINE LIPOSOME/PF 20 ML VIAL OPERA.SITE (10:56)
--- NOTE | 2018-12-13 11:00 | OP.PCM_ITS ---
Problem List (1) Cholecystitis Status: Acute (2) Tubulovillous adenoma of colon Status: Acute Report of Operation Date of Procedure: 12/13/18 Pre-Operative Diagnosis: Acalculus cholecystitis. Large tubulovillous adenoma of the proximal transverse colon Post-Operative Diagnosis: Same Surgery/Procedure Performed:: Laparoscopic cholecystectomy. Laparoscopic right colectomy Description of Surgical Findings:: Timeout and informed consent was obtained. 63-year-old female was taken out from placement table underwent general endotracheal intubation anesthesia. Yesterday she received 40 mg of prednisone orally. She received aerosol treatment preoperatively. Cefotetan 2 g were given was given intravenously preoperatively. The abdomen was sterilely prepped and draped. 0.25% Marcaine 60 cc was diluted with 20 cc of Exparel and used as a local anesthetic. A vertical incision was made superior to the umbilicus sharp dissection carried do wn to subcu tissue holding sutures of 0 Vicryl placed varies needle inserted saline drop test performed the abdomen was insufflated with CO2 to a pressure of 10 ventricle pressure. To me trocar inserted. 10 lap scope inserted. No evidence of intraocular injuries. 5-minute trochars were placed in the epigastric area in the right lower quadrant in the right lateral mid abdomen. Expiration revealed an extraordinarily fatty omentum adherent and overhanging the right colon and adherent to the anterior abdominal wall in the pelvis. Evidence of the Josefina ink marking the proximal transverse colon was identified. I initiated the procedure by using the harmonic scalpel and releasing the hepatic flexure from its retroperitoneal attachments. I carried that down the white line of Toldt. Were adhesions of the cecum to the intra-abdominal wall and I released these with the harmonic scalpel. I released the terminal ileum. However the greater omentum was overlying the right colon littered in view to the ileocolic vessels. I had to transect that portion of the greater omentum order to see the mesentery and then realized it was incredibly thick and fatty prohibiting views of the ileocolic vessels. At this point I felt I would address the gallbladder. The patient's liver was very yellow and fat replaced. Fortunately gallbladder did not appear to be acutely inflamed at the moment. C arefully and tediously dissected free the critical view identifying the cystic duct cystic artery. I clipped them twice proximally hemo-lock clips prior to transecting that partially used a harmonic scalpel to dissect it and used electrocautery dissected free there were there was no spillage. The gallbladder was placed in a retrieval bag. At this point I elected to put a hand port and I lengthened the supraumbilical incision placed a hand port got the gallbladder removed freed up some more adhesions further freed up the right colon then I removed the right colon through that incision extended the dissection into more of an extended right colectomy past the middle colic vessels because that were my Josefina ink marking was and I could literally see where the polypoid mass was in the transverse colon and I had to go more distal. I then transected the mesentery using combination of harmonic scalpel and 0 chromic suture ligatures and hemoclips. I had to transect the middle colic as well because of the location it of it being immediately beneath the adenomatous area. Having achieved that now ice to the distal mid to distal transverse colon. I transected the transverse colon with a CLAY-75 stapler to transect the terminal ileum with the same. I created a functional end-to-end anastomosis by placing the bowel side to side made enterotomies secured that with the stapler. Eyes closed the enterotomies with a TA 60. I then placed some of the omentum overlying the staple line secured that would not place with a running 4-0 silk.. The bowel was placed back within the abdomen. The midline wound was closed with a running #1 PDS. The remainder of the local was used at the incision suctioning sites. I reinsufflated the abdomen inspected the bowel at all appear to be viable there was no evidence of any bleeding I aspirated a small amount of fluid. The liver bed was intact. The abdomen was again allowed to deflate of the CO2. Wound edges were approximated simple or running septic or 4-0 Monocryl. Steri-Strips Telfa OpSite dressings applied. Sponge and instrument and needle counts reported the surgeon be correct. Specimen right: Fragments of staple material in gallbladder. Drains none. Blood loss 100 cc. Ryan Avalos M.D., F.A.C.S. Type of Anesthesia:: General Anesthesiologist: Earl Gonzalez
--- NOTE | 2018-12-13 11:14 | CON.PCM_ITS ---
Problem List (1) Cholecystitis Status: Acute (2) Gastritis Status: Acute Qualifiers: Gastritis type: unspecified gastritis Chronicity: acute Gastritis bleeding: without bleeding Qualified Code(s): K29.00 - Acute gastritis without bleeding (3) Tubulovillous adenoma of colon Status: Acute (4) Asthma Status: Chronic Qualifiers: Asthma severity: unspecified severity Asthma persistence: unspecified Asthma complication type: unspecified Qualified Code(s): J45.909 - Unspecified asthma, uncomplicated (5) Positive colorectal cancer screening using Cologuard test Status: Chronic (6) Abdominal pain Status: Chronic Qualifiers: Abdominal location: epigastric Qualified Code(s): R10.13 - Epigastric pain Reason for Consult Date of Consultation: 12/13/18 Reason for Consultation: Management of medical comorbidities History of Present Illness: Patient is a 63-year-old lady recently diagnosed with a calculus cholecystitis as well as tubulovillous adenomas involving the cecum (resected prior to patient's procedure) as well as the proximal transverse colon. Patient underwent laparoscopic cholecystectomy and right hemicolectomy (in view of the extremely large size of the adenoma) on 12/13/[address] Ryan Avalos the hospitalist service was consulted to assist with management of patient medical comorbidities. Past Medical History Past Medical History (Chronic Problems): Chronic Problems (Last Reviewed 12/13/18 @ 11:12 by Refugio Ricardo MD) Asthma (Chronic) Positive colorectal cancer screening using Cologuard test (Chronic) Abdominal pain (Chronic) Medical History: Medical History (Last Reviewed 12/13/18 @ 11:12 by Refugio Ricardo MD) Cholecystitis (Acute) K81.9 Gastritis (Acute) K29.70 Tubulovillous adenoma of colon (Acute) D12.6 Asthma (Chronic) J45.909 Positive colorectal cancer screening using Cologuard test (Chronic) R19.5 Abdominal pain (Chronic) R10.9 Acid reflux K21.9 Asthma J45.909 Environmental allergies Z91.09 Allergies nitrile Allergy (Severe, Verified 12/13/18 06:06) shortness of breath and rash dexlansoprazole [From Dexilant] Allergy (Mild, Verified 12/13/18 06:06) Unknown bee pollen Allergy (Verified 12/13/18 06:06) Anaphylaxis bee venom protein (honey bee) Allergy (Verified 12/13/18 06:06) Anaphylaxis erythromycin base Allergy (Verified 12/13/18 06:06) Rash Fish Containing Products Allergy (Verified 12/13/18 06:06) Rash fish derived Allergy (Verified 12/13/18 06:06) Rash fish oil Allergy (Verified 12/13/18 06:06) Rash lansoprazole [From Prevacid] Allergy (Verified 12/13/18 06:06) Other shellfish derived Allergy (Verified 12/13/18 06:06) Anaphylaxis WAX FROM FLOORS Allergy (Uncoded 12/07/18 11:08) Other Home Medications: Ambulatory Orders Medication Instructions Recorded esomeprazole magnesium 20 mg 20 mg PO DAILY cap 11/23/18 capsule,delayed release metronidazole 1 % topical gel 1 applic TOPICAL DAILY 11/23/18 montelukast 10 mg tablet 10 mg PO QPM 11/23/18 ranitidine 150 mg tablet 150 mg PO DAILY 11/23/18 Albuterol Aerosols [Ventolin 2.5 mg INHALATION Q6H PRN PRN 11/27/18 Aerosols] Albuterol IH (ProAir) [Proair Hfa 1 - 2 puff INHALATION Q4H PRN PRN 11/27/18 (SP)Vent Pts] metronidazole 500 mg tablet 500 mg PO .COMPLEX #6 tab 12/10/18 neomycin 500 mg tablet 500 mg PO .COMPLEX #3 tab 12/10/18 prednisone 20 mg tablet 40 mg PO ONCE #2 tab 12/10/18 Amox/Clavulanate Tablet [Augmentin 875 mg PO Q12H 12/13/18 Tablet] Surgical History: Surgical History (Last Reviewed 12/13/18 @ 11:12 by Refugio Ricardo MD) 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 History of colonoscopy Onset Date: ~11/30/18 Z98.890 History of esophagogastroduodenoscopy (EGD) Onset Date: ~11/30/18 Z98.890 S/P lumpectomy, left breast Z98.890 benign S/P tonsillectomy Z90.89 S/P wisdom tooth extraction Z98.818 Smoking Status: Never smoker - *Family History Maternal Family History: Family History (Last Reviewed 12/13/18 @ 11:13 by Refugio Ricardo MD) Father Hypertension Kidney disease Mother Diabetes Hypertension Thyroid disorder Grandmother Breast cancer Brother Heart disease Aunt Breast cancer Paternal Family History: Family History (Last Reviewed 12/13/18 @ 11:13 by Refugio Ricardo MD) Father Hypertension Kidney disease Mother Diabetes Hypertension Thyroid disorder Grandmother Breast cancer Brother Heart disease Aunt Breast cancer Review of Systems Unable to obtain accurate/complete ROS d/t: Patient recovering from anesthesia Objective: GENERAL: Somewhat lethargic HEENT: Atraumatic; EYES; Anicteric, Normal Conjunctiva NECK; supple, normal thyroid, RESPIRATORY: Diminished to auscultation bilaterally, CARDIOVASCULAR: Regular S1 S2, GI: soft, non-tender, normoactive bowel sounds, : No Renal angle tenderness; EXTREMITIES: No edema, no clubbing, NEURO: Lethargic but appears to move all extremities spontaneously SKIN: No Rash PSYCH; unable to assess - Physical Exam Vital Signs Temp Pulse Resp BP Pulse Ox 99.0 F 93 16 162/75 H 98 12/13/18 06:11 12/13/18 06:11 12/13/18 06:11 12/13/18 06:11 12/13/18 06:11 Oxygen Delivery Method Room Air Weight: 103.7 kg Body Mass Index (BMI) 34.7 Laboratory Tests Past 24 Hrs 12/13/18 05:55 Carcinoembryonic Ag Pending POC Glucose 12/13/18 06:16 POC Glucose 160 H Assessment/Plan All Active Problems (Last Reviewed 12/13/18 @ 11:12 by Refugio Ricardo MD) Cholecystitis (Acute) Gastritis (Acute) Tubulovillous adenoma of colon (Acute) Patient is a 63-year-old lady recently diagnosed with a calculus cholecystitis as well as tubulovillous adenomas involving the cecum (resected prior to patient's procedure) as well as the proximal transverse colon. Patient underwent laparoscopic cholecystectomy and right hemicolectomy (in view of the extremely large size of the adenoma) on 12/13/[address] Ryan Avalos the hospitalist service was consulted to assist with management of patient medical comorbidities. 1. Large tubulovillous adenoma involving the proximal transverse colon status p ost laparoscopic right hemicolectomy on 12/13/[address] Ryan Avalos 2. Acalculous cholecystitis status post laparoscopic cholecystectomy on 12/13/[address] Ryan Avalos 3. GERD patient is on PPI 4. Allergic rhinitis; on montelukast 5. Mild intermittent asthma patient is on prednisone and albuterol as needed as well as montelukast 6. DVT prophylaxis will recommend low molecular weight heparin if no contraindication will defer to the decision to initiate DVT prophylaxis to primary service Code Visit Office Visits / Consults: [id number] IP Consult L5
--- NOTE | 2018-12-13 13:52 | NURSING ---
pt requesting pain medication, offered normicah, pt refused she stated she is unable to take that at this time due to her being too sleepy
[2018-12-13] MEDS: Ondansetron 4 MG/2 ML Vial IV ×2 (14:18→22:09)
[2018-12-13 16:11] LABS: Bedside Glucose 149 mg/dL (70-110)
--- NOTE | 2018-12-13 17:06 | NURSING ---
pt up in chair. pt c/o dizziness when up. pt removed scop patch.
--- NOTE | 2018-12-13 17:33 | PCM.PN.BLA ---
Progress Note Dizzy from scopolamine!!! Hasn't voided Reasonably comfortable Need to mobilize diego Will st. cath as needed pending bladder scan.
[2018-12-13] MEDS: HYDROcodone Bitartrate/Apap 5/325 Tablet PO (20:07)
[2018-12-13] MEDS: Montelukast 10 MG Tablet PO (22:05)
[2018-12-13] MEDS: 0.9% NaCl Peripheral Flush Adult/Peds IV (22:09)
[2018-12-14] VITALS (10 sets, daily range): BP systolic 122–155; BP diastolic 55–71; PULSE 67–89; RESP 16–20; TEMP 36.8–37.6; O2SAT 93–96
[2018-12-14] MEDS: Lactated Ringers 1,000 ML 40 ML IV (02:40)
[2018-12-14] MEDS: HYDROcodone Bitartrate/Apap 5/325 Tablet PO ×2 (02:47→21:17)
[2018-12-14] MEDS: Enoxaparin 40 MG/0.4 ML Syringe SC (05:29)
[2018-12-14 05:35] LABS: Bedside Glucose 94 mg/dL (70-110)
--- NOTE | 2018-12-14 05:54 | PCM.PN.SRG ---
Subjective: Pt states tylenol does nothing for her pain/ prefers NSAID She would like some simethicone Asking about respiratory treatment--I will differ to medicine Pt is voiding - Physical Exam General: Alert, Oriented x3, Cooperative, No apparent distress Lungs: Clear to auscultation Abdomen: Soft, Hypoactive Bowel Sounds, Distended - wounds clean Vital Signs Temp Pulse Resp BP Pulse Ox 99.5 F H 67 18 146/71 H 94 12/14/18 02:55 12/14/18 02:55 12/14/18 02:55 12/14/18 02:55 12/14/18 02:55 Oxygen Flow Rate (L/min) 2 Oxygen Delivery Method Room Air Weight: 228 lb 9.91 oz Body Mass Index (BMI) 34.7 Intake and Output for Last 24 Hours 12/12/18 12/13/18 12/14/18 23:59 23:59 23:59 Intake Total 1949 1451 / 1451 Output Total 1800 / 1800 Balance 1949 -349 / -349 Laboratory Tests Past 24 Hrs 12/13/18 05:55 Carcinoembryonic Ag Pending POC Glucose 12/14/18 12/13/18 12/13/18 05:27 16:06 06:16 POC Glucose 94 149 H 160 H Medical Necessity - Tobacco Use Smoking Status: Never smoker Assessment/Plan All Active Problems (Last Reviewed 12/13/18 @ 11:12 by Refugio Ricardo MD) Cholecystitis (Acute) Gastritis (Acute) Tubulovillous adenoma of colon (Acute) Good progress Will start transitional diet Mobilize pt. Dizziness is better now that scopolamine is off
[2018-12-14 06:19] LABS: Absolute Lymphocyte Count 1.98 X10^3/ul (0.83-4.51); Absolute Neutrophil Count 9.9 X10^3/uL (2.0-7.7); Basophil# 0.01 X10^3/uL; Basophil% 0.1 % (0-1); Hematocrit 38.4 % (37-47); Hemoglobin 12.8 g/dl (12.0-15.0); Lymphocyte # 1.98 X10^3/ul (4.0); Lymphocyte % 15.1 % (19-41); Mean Corp Hgb Conc 33.3 g/gl (32-36); Mean Corpuscular Hgb 28.9 pg (27.0-32.0); Mean Corpuscular Volume 86.7 fL (81-99); Mean Platelet Vol. 10.7 fl (6.2-12.0); Monocyte# 1.19 X10^3/uL; Monocyte% 9.1 % (0-10); Neutrophil # 9.89 X10^3/uL (2.7-7.7); Neutrophil % 75.5 % (47-70); Platelet Count 228 K/mm3 (150-450); RBC Distribution Width SD 41.8 fl (35.1-43.9); Red Blood Count 4.43 M/mm3 (4.2-5.4); White Blood Count 13.1 K/mm3 (4.4-11.0)
[2018-12-14 06:21] LABS: POSITIVE COUNT NO; POSITIVE DIFFERENTIAL NO; POSITIVE MORPHOLOGY NO
[2018-12-14 06:29] LABS: Anion Gap 8 (5-15); BUN 8 mg/dL (7-18); BUN/Creat Ratio 7.7 RATIO (10-20); Calcium,Total 8.5 mg/dL (8.5-10.1); Chloride 109 mmol/L (98-107); Creatinine, Serum 1.04 mg/dL (0.55-1.02); EST Glomerular Filtration Rate 57 mL/min (>60); Est Glom Filt Rate - Afr Amer 69 mL/min (>60); Glucose 98 mg/dL (74-106); Potassium 3.9 mmol/L (3.5-5.1); Sodium Level 144 mmol/L (136-145)
--- NOTE | 2018-12-14 07:22 | PN_ITS ---
Subjective: Patient is a 63-year-old lady recently diagnosed with a calculus cholecystitis as well as tubulovillous adenomas involving the cecum (resected prior to patient's procedure) as well as the proximal transverse colon. Patient underwent laparoscopic cholecystectomy and right hemicolectomy (in view of the extremely large size of the adenoma) on 12/13/[address] Ryan Avalos the hospitalist service was consulted to assist with management of patient medical comorbidities. 12/14/2018: Patient seen complains of throat irritation. Also requested for b reathing treatment Objective: GENERAL: cooperative HEENT: Atraumatic; EYES; Anicteric, Normal Conjunctiva NECK; supple, normal thyroid, . RESPIRATORY: Diminished to auscultation CARDIOVASCULAR: Regular S1 S2, GI: soft, non-tender, normoactive bowel sounds, : No Renal angle tenderness; EXTREMITIES: No edema, no clubbing, no cyanosis. MUSCULOSKELETAL: No Joint Tenderness; n NEURO: Awake; no lateralizing signs. SKIN: No Rash PSYCH; Normal affect Vitals/I&O's: Vital Signs Temp Pulse Resp BP Pulse Ox 99.5 F H 67 18 146/71 H 94 12/14/18 02:55 12/14/18 02:55 12/14/18 02:55 12/14/18 02:55 12/14/18 02:55 Oxygen Flow Rate (L/min) 2 Oxygen Delivery Method Room Air Weight: 103.7 kg Body Mass Index (BMI) 34.7 Intake and Output for Last 24 Hours 12/12/18 12/13/18 12/14/18 23:59 23:59 23:59 Intake Total 1949 1451 / 1451 Output Total 1800 / 1800 Balance 1949 -349 / -349 Laboratory Results 12/13/18 16:06: POC Glucose 149 H 12/14/18 05:27: POC Glucose 94 12/14/18 06:00: Sodium 144, Potassium 3.9, Chloride 109 H, Carbon Dioxide 27.0, Anion Gap 8, BUN 8, Creatinine 1.04 H, Estim Creat Clear Calc 57.30, Est GFR (MDRD) Af Amer 69, Est GFR (MDRD) Non-Af 57 L, BUN/Creatinine Ratio 7.7 L, Glucose 98, Calcium 8.5 12/14/18 06:00: WBC 13.1 H, RBC 4.43, Hgb 12.8, Hct 38.4, MCV 86.7, MCH 28.9, MCHC 33.3, RDW 13.0, RDW Differential 41.8, Plt Count 228, MPV 10.7, Immature Gran % (Auto) 0.200, Neut % (Auto) 75.5 H, Lymph % (Auto) 15.1 L, Sharp % (Auto) 9.1, Eos % (Auto) 0.0, Baso % (Auto) 0.1, Absolute Neuts (auto) 9.9 H, Absolute Lymphs (auto) 1.98, Total Counted Not Reportable Current Medications Acetaminophen (Tylenol) 650 mg PO Q6H PRN PRN PRN Reason: PAIN Hydrocodone Bitart/Acetaminophen ([place] 5mg-325mg) 1 - 2 tablet PO Q4H PRN PRN PRN Reason: PAIN Last Admin: 12/14/18 02:47 Dose: 1 tablet Albuterol Sulfate (Ventolin Aerosols) 2.5 mg INHALATION Q6H PRN PRN PRN Reason: Asthma Enoxaparin Sodium (Lovenox) 40 mg SC DAILY@0600 [facility] Last Admin: 12/14/18 05:29 Dose: 40 mg Famotidine (Pepcid) 20 mg PO DAILY [facility] Insulin Human Lispro (Humalog Kwikpen (Bkc)) 0 unit SC Q4H PRN PRN; Protocol PRN Reason: BG >/= 180, SEE PROTOCOL Ketorolac Tromethamine (Toradol) 10 mg PO Q8H PRN PRN PRN Reason: PAIN Stop: 12/19/18 05:53 Montelukast Sodium (Singulair) 10 mg PO QPM [facility] Last Admin: 12/13/18 22:05 Dose: 10 mg Morphine Sulfate () 2 - 4 mg IV Q2H PRN PRN PRN Reason: PAIN Ondansetron HCl (Zofran) 4 mg IV Q8H PRN PRN PRN Reason: NAUSEA Last Admin: 12/13/18 22:09 Dose: 4 mg Pantoprazole Sodium (Protonix) 20 mg PO DAILY [facility] Simethicone (Mylicon) 80 mg PO TIDPC [facility] Sodium Chloride () 5 - 15 ml IV UD PRN PRN Reason: SALINE FLUSH Last Admin: 12/13/18 22:09 Dose: 10 ml Medical Necessity - Tobacco Use Smoking Status: Never smoker Assessment/Plan All Active Problems (Last Reviewed 12/13/18 @ 11:12 by Refugio Ricardo MD) Cholecystitis (Acute) Gastritis (Acute) Tubulovillous adenoma of colon (Acute) Patient is a 63-year-old lady recently diagnosed with a calculus cholecystitis as well as tubulovillous adenomas involving the cecum (resected prior to patient's procedure) as well as the proximal transverse colon. Patient underwent laparoscopic cholecystectomy and right hemicolectomy (in view of the extremely large size of the adenoma) on 12/13/[address] Ryan Avalos the hospitalist service was consulted to assist with management of patient medical comorbidities. 1. Large tubulovillous adenoma involving the proximal transverse colon status post laparoscopic right hemicolectomy on 12/13/[address] Ryan Avalos. ~12/14/2018 patient complaining of some abdominal soreness 2. Acalculous cholecystitis status post laparoscopic cholecystectomy on 12/13/[address] Ryan Avalos 3. GERD patient is on PPI 4. Allergic rhinitis; on montelukast 5. Mild intermittent asthma patient is on prednisone and albuterol as needed as well as montelukast added aerosol treatment to patient's regimen 6. DVT prophylaxis SCDs and Lovenox Active Medications Acetaminophen (Tylenol) 650 mg PO Q6H PRN PRN PRN Reason: PAIN Hydrocodone Bitart/Acetaminophen ([place] 5mg-325mg) 1 - 2 tablet PO Q4H PRN PRN PRN Reason: PAIN Last Admin: 12/14/18 02:47 Dose: 1 tablet Albuterol Sulfate (Ventolin Aerosols) 2.5 mg INHALATION Q6H PRN PRN PRN Reason: Asthma Enoxaparin Sodium (Lovenox) 40 mg SC DAILY@0600 [facility] Last Admin: 12/14/18 05:29 Dose: 40 mg Famotidine (Pepcid) 20 mg PO DAILY [facility] Ketorolac Tromethamine (Toradol) 10 mg PO Q8H PRN PRN PRN Reason: PAIN Stop: 12/19/18 05:53 Montelukast Sodium (Singulair) 10 mg PO QPM [facility] Last Admin: 12/13/18 22:05 Dose: 10 mg Morphine Sulfate () 2 - 4 mg IV Q2H PRN PRN PRN Reason: PAIN Ondansetron HCl (Zofran) 4 mg IV Q8H PRN PRN PRN Reason: NAUSEA Last Admin: 12/13/18 22:09 Dose: 4 mg Pantoprazole Sodium (Protonix) 20 mg PO DAILY [facility] Simethicone (Mylicon) 80 mg PO TIDPC [facility] Sodium Chloride () 5 - 15 ml IV UD PRN PRN Reason: SALINE FLUSH Last Admin: 12/13/18 22:09 Dose: 10 ml Code Visit Inpatient E&M: 46797 Subs Hosp L2
[2018-12-14] MEDS: Ketorolac 10 MG Tablet PO ×2 (08:34→16:50)
[2018-12-14] MEDS: Pantoprazole Sodium 20 MG Tablet PO (08:34)
[2018-12-14] MEDS: Famotidine 20 MG Tablet PO (08:35)
--- NOTE | 2018-12-14 09:50 | CASEMGMT ---
RN CM LINE UP EXAMINER CM to room to meet with patient for initial transition planning/care coordination assessment. ADRIAN HOYOS introduced self and role at [facility]. Pt voices understanding and consents to assessment at this time. Pt resting in bed in no distress at this time. Pt is A/O at this time and answers all questions appropriately. Care providers, pharmacy, and demographics verified/updated at this time. PCP: [place] Specialists: Reservoir Engineering Manager in [place], Dr Michelle Avalos--surgeon Preferred Pharmacy: [facility] Retail Insurance: MMO Prescription Benefit: Yes Living Will/HPOA: States she has a LW but does not have a HCPOA and declines info at this time. She states her daughter is a precision lens centerer and edger and can assist her with this. LNOK: Living Arrangements: Lives with in a one-story home. 3-4 steps to enter w/rails. Was independent prior to hospitalization. can assist her with any needs she may have. Transportation: Pt states drives self and states no transportation concerns at this time. will drive her home @ discharge. DME: States has a nebulizer. Pt states no need for further DME at this time. HHC/SNF: No history of either. Denies needs and no needs identified. Pt wishes to return home and states has no concerns with going home at time of discharge. CM to follow for any discharge planning/needs. Pt and voice no concerns/needs at this time. Advised to ask for CM if have any questions/concerns/needs arise. They voice understanding. PLAN: Home with spousal support and discharge plans in place. Aby EVANS RN, CM
[2018-12-14] MEDS: Albuterol 2.5 MG/3 ML VIAL.NEB. INHALATION (10:49)
[2018-12-14] MEDS: Ipratropium/Albuterol Sulfate 3 ML AMPUL.NEB INHALATION ×2 (12:59→19:05)
[2018-12-14 17:05] LABS: Bedside Glucose 102 mg/dL (70-110)
[2018-12-14] MEDS: 0.9% NaCl Peripheral Flush Adult/Peds IV (20:02)
[2018-12-14] MEDS: Ondansetron 4 MG/2 ML Vial IV (20:02)
[2018-12-14] MEDS: Montelukast 10 MG Tablet PO (20:06)
[2018-12-15 00:50] VITALS: BP 150/70; PULSE 67; RESP 16; TEMP 37.2; O2SAT 98
[2018-12-15] MEDS: Ketorolac 10 MG Tablet PO ×2 (03:41→12:36)
[2018-12-15 03:51] VITALS: BP 151/84; PULSE 65; RESP 18; TEMP 36.6; O2SAT 96
[2018-12-15 03:56] VITALS: PULSE 76; RESP 20
[2018-12-15] MEDS: Albuterol 2.5 MG/3 ML VIAL.NEB. INHALATION ×2 (03:59→11:53)
[2018-12-15] MEDS: Ondansetron ODT 4 MG Tablet PO (04:15)
[2018-12-15] MEDS: Enoxaparin 40 MG/0.4 ML Syringe SC (05:43)
--- NOTE | 2018-12-15 06:36 | PCM.PN.SRG ---
Subjective: Pt passing stool and flatus, feeling better - Physical Exam Lungs: Clear to auscultation Abdomen: Bowel Sounds Present, Soft, Distended - wounds clean Vital Signs Temp Pulse Resp BP Pulse Ox 98 F 76 20 H 151/84 H 96 12/15/18 03:51 12/15/18 03:56 12/15/18 03:56 12/15/18 03:51 12/15/18 03:51 Oxygen Flow Rate (L/min) 2 Oxygen Delivery Method Room Air Weight: 228 lb 9.91 oz Body Mass Index (BMI) 34.7 Intake and Output for Last 24 Hours 12/13/18 12/14/18 12/15/18 23:59 23:59 23:59 Intake Total 1949 3181 / 3181 960 / 960 Output Total 3500 / 3500 600 / 600 Balance 1949 -319 / -319 360 / 360 Laboratory Tests Past 24 Hrs 12/13/18 05:55 Carcinoembryonic Ag 2.0 POC Glucose 12/14/18 16:54 POC Glucose 102 Medical Necessity - Tobacco Use Smoking Status: Never smoker Assessment/Plan All Active Problems (Last Reviewed 12/13/18 @ 11:12 by Refugio Ricardo MD) Cholecystitis (Acute) Gastritis (Acute) Tubulovillous adenoma of colon (Acute) Ready for discharge
[2018-12-15 06:50] VITALS: PULSE 79; RESP 16; O2SAT 95
[2018-12-15] MEDS: Ipratropium/Albuterol Sulfate 3 ML AMPUL.NEB INHALATION (06:50)
--- NOTE | 2018-12-15 07:23 | PCM.PN.HOSP ---
Subjective: Patient seen had a relatively uneventful night except for insomnia. Plan is for patient to be discharged home. Objective: GENERAL: cooperative HEENT: Atraumatic; EYES; Anicteric, Normal Conjunctiva NECK; supple, normal thyroid, . RESPIRATORY: Diminished to auscultation CARDIOVASCULAR: Regular S1 S2, GI: soft, non-tender, normoactive bowel sounds, : No Renal angle tenderness; EXTREMITIES: No edema, no clubbing, no cyanosis. MUSCULOSKELETAL: No Joint Tenderness; NEURO: Awake; no lateralizing signs. SKIN: No Rash PSYCH; Normal affect Vitals/I&O's: Vital Signs Temp Pulse Resp BP Pulse Ox 98 F 76 20 H 151/84 H 96 12/15/18 03:51 12/15/18 03:56 12/15/18 03:56 12/15/18 03:51 12/15/18 03:51 Oxygen Flow Rate (L/min) 2 Oxygen Delivery Method Room Air Weight: 103.7 kg Body Mass Index (BMI) 34.7 Intake and Output for Last 24 Hours 12/13/18 12/14/18 12/15/18 23:59 23:59 23:59 Intake Total 1949 3181 / 3181 960 / 960 Output Total 3500 / 3500 600 / 600 Balance 1949 -319 / -319 360 / 360 Laboratory Results 12/13/18 05:55: Carcinoembryonic Ag 2.0 12/14/18 16:54: POC Glucose 102 Current Medications Acetaminophen (Tylenol) 650 mg PO Q6H PRN PRN PRN Reason: PAIN Hydrocodone Bitart/Acetaminophen ([place] 5mg-325mg) 1 - 2 tablet PO Q4H PRN PRN PRN Reason: PAIN Last Admin: 12/14/18 21:17 Dose: 1 tablet Albuterol Sulfate (Ventolin Aerosols) 2.5 mg INHALATION Q2H PRN PRN PRN Reason: Asthma Last Admin: 12/15/18 03:59 Dose: 2.5 mg Albuterol/Ipratropium (Duoneb) 3 ml INHALATION Q6HWA.RT [facility] Last Admin: 12/15/18 06:50 Dose: 3 ml Enoxaparin Sodium (Lovenox) 40 mg SC DAILY@0600 [facility] Last Admin: 12/15/18 05:43 Dose: 40 mg Famotidine (Pepcid) 20 mg PO DAILY [facility] Last Admin: 12/14/18 08:35 Dose: 20 mg Ketorolac Tromethamine (Toradol) 10 mg PO Q8H PRN PRN PRN Reason: PAIN Stop: 12/19/18 05:53 Last Admin: 12/15/18 03:41 Dose: 10 mg Montelukast Sodium (Singulair) 10 mg PO QPM [facility] Last Admin: 12/14/18 20:06 Dose: 10 mg Morphine Sulfate () 2 - 4 mg IV Q2H PRN PRN PRN Reason: PAIN Ondansetron HCl (Zofran) 4 mg IV Q8H PRN PRN PRN Reason: NAUSEA Last Admin: 12/14/18 20:02 Dose: 4 mg Ondansetron HCl (Zofran Odt) 4 mg PO Q8H PRN PRN PRN Reason: nausea, emesis Last Admin: 12/15/18 04:15 Dose: 4 mg Pantoprazole Sodium (Protonix) 20 mg PO DAILY [facility] Last Admin: 12/14/18 08:34 Dose: 20 mg Simethicone (Mylicon) 80 mg PO TIDPC [facility] Last Admin: 12/14/18 18:22 Dose: 80 mg Sodium Chloride () 5 - 15 ml IV UD PRN PRN Reason: SALINE FLUSH Last Admin: 12/14/18 20:02 Dose: 10 ml Medical Necessity - Tobacco Use Smoking Status: Never smoker Assessment/Plan All Active Problems (Last Reviewed 12/13/18 @ 11:12 by Refugio Ricardo MD) Cholecystitis (Acute) Gastritis (Acute) Tubulovillous adenoma of colon (Acute) Patient is a 63-year-old lady recently diagnosed with a calculus cholecystitis as well as tubulovillous adenomas involving the cecum (resected prior to patient's procedure) as well as the proximal transverse colon. Patient underwent laparoscopic cholecystectomy and right hemicolectomy (in view of the extremely large size of the adenoma) on 12/13/[address] Ryan Avalos the hospitalist service was consulted to assist with management of patient medical comorbidities. 1. Large tubulovillous adenoma involving the proximal transverse colon status post laparoscopic right hemicolectomy on 12/13/[address] Ryan Avalos. ~12/14/2018 patient complaining of some abdominal soreness ~12/15/2018: Patient medically stable for discharge 2. Acalculous cholecystitis status post laparoscopic cholecystectomy on 12/13/[address] Ryan Avalos 3. GERD patient is on PPI 4. Allergic rhinitis; on montelukast 5. Mild intermittent asthma patient is on prednisone and albuterol as needed as well as montelukast added aerosol treatment to patient's regimen 6. DVT prophylaxis SCDs and Lovenox Code Visit Inpatient E&M: 73958 Subs Hosp L2
[2018-12-15 09:27] VITALS: BP 147/67; PULSE 78; RESP 18; TEMP 37.3; O2SAT 97
[2018-12-15] MEDS: Famotidine 20 MG Tablet PO (09:37)
[2018-12-15] MEDS: Pantoprazole Sodium 20 MG Tablet PO (09:37)
[2018-12-15 11:55] VITALS: PULSE 72; RESP 18
== END 2018-12-15 13:15 | disposition home or self-care (01) | DRG 330 ==
LOC: ACINP 05:37 → MS3 11:27
PROVIDERS: Admitting Provider Surgery; Family Provider Family Medicine; PCP Family Medicine; Referring Provider Surgery; Visit Provider Surgery
PROC: 0DTF4ZZ Resection of Right Large Intestine, Percutaneous Endoscopic Approach (ICD-10-PCS; CPT 44205; principal; 2018-12-13 07:10)
DX: D12.3 Benign neoplasm of transverse colon (principal); K81.0 Acute cholecystitis; K29.70 Gastritis, unspecified, without bleeding; J45.20 Mild intermittent asthma, uncomplicated; K21.9 Gastro-esophageal reflux disease without esophagitis; E66.3 Overweight; Z68.34 Body mass index [BMI] 34.0-34.9, adult; Z78.0 Asymptomatic menopausal state; Z79.899 Other long term (current) drug therapy
CPT/HCPCS: 36415; 71046; 80048; 82378; 82962; 85025; 93005; 94640; J7050; J7120; A4216; J2405

== ENCOUNTER → 2019-07-04 | Outpatient (CLI) | payer OTHER, SELFPAY ==
[2018-12-13 13:18] VITALS: BMI 34.7
--- NOTE | 2019-07-04 15:15 | EMB_PTH ---
PATIENT: JASMINE MICHELLE LOC: [facility] U#:[id number] AGE/SX: 63/F ROOM: RE07/04/[address]: Dr. Alexsander Bean MD : 1955 BED: DIS: 07/04/2019 SPEC #: [id number] RECD: 07/04/19 17:47 STATUS: MARIAA RETamara #: [id number] SOPHIA: 07/04/19 15:[address]: Alexsander Bean DEPT: SURGICAL PATHOLOGY RECD BY: Nneka Ramirez ENTERED: 07/05/19 09:17 SP TYPE: ENDOM BX/C RODRIGO DR: Dr. Gary Boogie MD Tissues: Endometrium, NOS Procedures: Surgery Specimen Level IV HEADER OPERATION: Endometrial biopsy PRE-OP DIAGNOSIS: Postmenopausal bleeding TISSUE SUBMITTED: Endometrium MICROSCOPIC DIAGNOSIS Endometrium, biopsy: Polypoid fragment of disordered endometrium with glandular breakdown. Scant strips of benign superficial endocervix. Detached squamous epithelial cells with no pathologic change. See comment. AM:cookie 07/08/19 COMMENT Clinical correlation is suggested. MICROSCOPIC DESCRIPTION Slides are reviewed. GROSS DESCRIPTION Received in fixative is one container labeled with the patient's name and designated endometrial biopsy. The specimen consists of multiple irregular fragments of red-darling soft tissue that in aggregate measure 2.5 x 2.5 x <0.1 cm. The specimen is totally submitted in one cassette. / AM:cookie 07/05/19 TC:5 CPT: 39318
[2019-07-09 15:43] LABS: HPV Reflexed? NOT INDICATED
== END | disposition home or self-care (01) ==
LOC: LABSPEC 17:09
PROVIDERS: Family Provider Family Medicine; PCP Family Medicine; Referring Provider Obstetrics & Gynecology; Visit Provider Obstetrics & Gynecology
DX: Z12.4 Encounter for screening for malignant neoplasm of cervix (principal)
CPT/HCPCS: 88175; 88305; G0145

== ENCOUNTER 2019-08-12 09:11 | Day surgery (SDC) | payer OTHER, SELFPAY ==
[2018-12-13 13:18] VITALS: BMI 34.7
--- NOTE | 2019-08-07 11:00 | RAD_ITS ---
HISTORY: PRE OP;H/O ASTHMA EXAM: XR Chest 2 Views: COMPARISON: December 07, 2018 FINDINGS: # of images incl. paperwork: 2 Lungs are clear. Heart is not enlarged. No acute osseous pathology perceived. Pulmonary vascularity is distinct. No effusions. RAD/Chest PA and Lateral IMPRESSION: Normal. at 0543 Reported and signed by: Ciro Vance MD Electronically Signed: Ciro Vance MD at 5:42 EST Tel , Service support ,
[2019-08-07 11:05] LABS: Hematocrit 43.8 % (37-47); Hemoglobin 14.1 g/dL (12.0-15.0); Mean Corp Hgb Conc 32.2 g/dL (32-36); Mean Corpuscular Hgb 27.5 pg (27.0-32.0); Mean Corpuscular Volume 85.5 fL (81-99); Mean Platelet Vol. 11.2 fl (6.2-12.0); Platelet Count 224 K/mm3 (150-450); RBC Distribution Width CV 13.3 % (11.6-14.6); RBC Distribution Width SD 41.9 fl (35.1-43.9); Red Blood Count 5.12 M/mm3 (4.2-5.4); White Blood Count 6.7 K/mm3 (4.4-11.0)
[2019-08-07 11:13] LABS: Prothrombin Time (Protime)PT. 12.8 SECONDS (11.7-14.9)
[2019-08-07 11:14] LABS: Partial Thromboplast Time 27.7 Seconds (24.1-36.2)
[2019-08-07 11:32] LABS: ALB/GLOB Ratio 0.9 RATIO (0.9-2.4); AST(SGOT) 80 U/L (15-37); Alanine Aminotransfer ALT/SGPT 111 U/L (13-56); Albumin, Serum 3.7 g/dL (3.2-5.0); Alkaline Phosphatase 122 U/L (45-117); Anion Gap 3 (5-15); BUN 11 mg/dL (7-18); BUN/Creat Ratio 11.9 RATIO (10-20); Calcium,Total 9.2 mg/dL (8.5-10.1); Chloride 109 mmol/L (98-107); Creatinine, Serum 0.93 mg/dL (0.55-1.02); EST Glomerular Filtration Rate 65 mL/min (>60); Est Glom Filt Rate - Afr Amer 79 mL/min (>60); Globulin 3.9 g/dL (2.2-4.2); Glucose 107 mg/dL (74-106); Potassium 3.7 mmol/L (3.5-5.1); Protein, Total 7.6 g/dL (6.4-8.2); Sodium Level 141 mmol/L (136-145)
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
[2019-08-12] VITALS (7 sets, daily range): BP systolic 156–188; BP diastolic 70–93; PULSE 80–98; RESP 16–18; TEMP 36.5–37.2; O2SAT 95–100; BMI 34.5
[2019-08-12] MEDS: Lactated Ringers 1,000 ML 100 ML IV (09:45)
--- NOTE | 2019-08-12 10:40 | EMB_PTH ---
PATIENT: JASMINE MICHELLE LOC: [facility] [place] U#:[id number] AGE/SX: 63/F ROOM: RE08/12/[address]: Dr. Alexsander Bean MD : 1955 BED: DIS: 08/12/2019 SPEC #: [id number] RECD: 08/12/19 13:22 STATUS: MARIAA RETamara #: [id number] SOPHIA: 08/12/19 10:[address]: Alexsander Bean DEPT: SURGICAL PATHOLOGY RECD BY: Mychal Marquez ENTERED: 08/12/19 13:42 SP TYPE: ENDOM BX/C RODRIGO DR: Dr. Gary Boogie MD Tissues: A - Endocervical B - Endometrium, NOS Procedures: Surgery Specimen Level IV HEADER OPERATION: Hysteroscopy, D & C PRE-OP DIAGNOSIS: Postmenopausal bleeding TISSUE SUBMITTED: A - Endocervical curettings, B - Endometrial curettings MICROSCOPIC DIAGNOSIS A. Endocervical curettings: Fragments of benign ecto- and endocervical epithelium, endocervical mucosa with chronic inflammation, blood and mucous. B. Endometrial curettings: Fragments of endometrial polyp with simple endometrial hyperplasia without atypia. Scant strips of benign endometrial epithelium. See comment. SJ:cookie 08/13/19 COMMENT Please make reference to previous specimen ([id number]) endometrium, biopsy with diagnosis of polypoid fragment of disordered endometrium with glandular breakdown. MICROSCOPIC DESCRIPTION Slides are reviewed. GROSS DESCRIPTION A - Received in fixative is one container labeled with the patient's name and designated endocervical curettings. The specimen consists of multiple fragments of hemorrhagic soft tissue mixed with mucoid tissue that in aggregate measure 3 x 2.5 x 0.1 cm. The specimen is totally submitted in one cassette. B - Received in fixative is one container labeled with the patient's name and designated endometrial curettings. The specimen consists of multiple fragments of darling-pink polyp measuring in aggregate 2.5 x 2 x 0.3 cm. Also present in the container are multiple fragments of hemorrhagic soft tissue measuring in aggregate 2.5 x 0.5 x 0.2 cm. The entire specimen is submitted in one cassette. / CRIS:cookie 08/12/19 TC:5 CPT: 77166 x2
--- NOTE | 2019-08-12 10:43 | PCM.OPRPT ---
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 Cervix which is high in the pelvis which would make vaginal or laparoscopic-assisted vaginal hysterectomy technically not feasible but robotic assisted vaginal hysterectomy possible. Type of Anesthesia:: MAC Anesthesiologist: Sabino Dumas Specimen's removed: Endometrial and endocervical curettings including polyps in endometrial sample Estimated Blood Loss (mL): Minimal Fluids Replaced: Crystalloid Description of Procedure: Surgeon: Alexsander Bean MD, FACOG Indications: This is a 63 year old patient who has the above diagnosis. The patient has been counseled regarding the risk and indications of this procedure including the possibility of bleeding, infection, and injury to surrounding structures such as bowel bladder. All questions were answered and we consider the patient well-informed. Procedure: The patient was taken to the operating room where after induction of general anesthesia, she was placed in the dorsolithotomy position and prepped and draped in the usual sterile fashion. The bladder was drained of approximately 50 cc of clear yellow urine with a catheter. Anterior cervix was grasped with the tenaculum and dilated to about 4-5 mm. A 3 mm hysteroscope was placed in the uterus of the above findings were noted. Cervix was dilated to about 7-8 mm and uterus was gently curetted removing all contents. Hysteroscope was reinserted and all material was noted to be removed. In the course of the procedure approximately 100 cc of saline distending media was used and virtually all of this was recovered. Patient tolerated procedure well was taken to recovery room in satisfactory condition sponge instrument and needle counts were all reportedly correct. Estimated blood loss for the case was minimal. Cefotan 2 g IV was given prior to beginning the operative procedure. Specimens to pathology was endometrial curettings and endocervical curettings Complications: None Grafts/Implants Used: None - Complications None - Admit VTE Documentation VTE Present on Admission: Yes VTE Mechan Device Prophylaxis: SCD's
--- NOTE | 2019-08-12 10:47 | PCM.DC.D&C ---
Discharge Diet: No Restrictions Discharge Activity: Return to Normal Activity, May Shower, May Take a Tub Bath May resume sexual activity in: 3 weeks Call your doctor if you observe: Fever of 101 or Higher, Inability to urinate, Inability to have a bowel movement, Using more than one pad per hour Additional Instructions: Nothing in the vagina for 2 weeks. Allergies/Adverse Reactions: Allergies nitrile Allergy (Severe, Verified 08/12/19 09:24) shortness of breath and rash dexlansoprazole [From Dexilant] Allergy (Mild, Verified 08/12/19 09:24) Unknown bee pollen Allergy (Verified 08/12/19 09:24) Anaphylaxis bee venom protein (honey bee) Allergy (Verified 08/12/19 09:24) Anaphylaxis erythromycin base Allergy (Verified 08/12/19:24) Rash Fish Containing Products Allergy (Verified 08/12/19 09:24) Rash fish derived Allergy (Verified 08/12/19 09:24) Rash fish oil Allergy (Verified 08/12/19 09:24) Rash lansoprazole [From Prevacid] Allergy (Verified 08/12/19 09:24) Other meloxicam [From Mobic] Allergy (Verified 08/12/19 09:24) Rash shellfish derived Allergy (Verified 08/12/19 09:24) Anaphylaxis scopolamine Adverse Reaction (Verified 08/12/19 09:24) blurred vision,syncope WAX FROM FLOORS Allergy (Uncoded 08/12/19 09:24) Other Medications to take at Discharge esomeprazole magnesium 20 mg capsule,delayed release 20 mg PO QHS cap 11/23/18 metronidazole 1 % topical gel 1 applic TOPICAL DAILY 11/23/18 montelukast 10 mg tablet 10 mg PO QPM 11/23/18 Albuterol Aerosols [Ventolin Aerosols] 2.5 mg INHALATION Q6H PRN PRN 11/27/18 Albuterol IH (ProAir) [Proair Hfa] 1 - 2 puff INHALATION Q4H PRN PRN 11/27/18 Naproxen [Naprosyn] 500 mg PO DAILY PRN PRN 08/05/19 cycloBENZAPRine HCl [Flexeril] 10 mg PO TID PRN PRN 08/05/19 Oxycodone [Oxyir] 5 mg PO Q6H PRN PRN 3 Days #5 tablet 08/12/19 The following prescriptions were given: Oxycodone [Oxyir] 5 mg PO Q6H PRN PRN 3 Days #5 tablet PRN Reason: Pain Score 6-04/18 Transmission Status: Sent to [facility] [facility] Primary Care Physician: Gary Boogie MD [Primary Care Provider] - Test Results: Test results from this visit will be discussed in further detail at your follow-up appointment, if applicable. Please Follow Up With: Alexsander Bean MD When: 2 to 3 weeks
== END 2019-08-12 12:39 | disposition home or self-care (01) ==
LOC: SDC 09:11 → AC 09:12
PROVIDERS: Family Provider Family Medicine; PCP Family Medicine; Referring Provider Obstetrics & Gynecology; Visit Provider Obstetrics & Gynecology
PROC: 0UDB8ZZ Extraction of Endometrium, Via Natural or Artificial Opening Endoscopic (ICD-10-PCS; CPT 58558; principal; 2019-08-12 10:30)
DX: N84.0 Polyp of corpus uteri (principal); N95.0 Postmenopausal bleeding; J45.909 Unspecified asthma, uncomplicated; M19.90 Unspecified osteoarthritis, unspecified site; K21.9 Gastro-esophageal reflux disease without esophagitis; Z79.899 Other long term (current) drug therapy; Z88.8 Allergy status to other drugs, medicaments and biological substances; Z88.1 Allergy status to other antibiotic agents
CPT/HCPCS: 58558; 36415; 71046; 80053; 85027; 85610; 85730; 86850; 86900; 86901; 88305; J7120

== ENCOUNTER 2020-04-07 07:22 | Day surgery (SDC) | payer OTHER, SELFPAY ==
[2020-03-12 06:25] VITALS: BMI 33.5
--- NOTE | 2020-04-07 07:32 | HP.PCM_ITS ---
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: No Is patient in pain?: No Allergies nitrile Allergy (Severe, Verified 03/12/20 09:04) shortness of breath and rash dexlansoprazole [From Dexilant] Allergy (Mild, Verified 03/12/20 09:04) Unknown bee pollen Allergy (Verified 03/12/20 09:04) Anaphylaxis bee venom protein (honey bee) Allergy (Verified 03/12/20 09:04) Anaphylaxis erythromycin base Allergy (Verified 03/12/20 09:04) Rash Fish Containing Products Allergy (Verified 03/12/20 09:04) Rash fish derived Allergy (Verified 03/12/20 09:04) Rash fish oil Allergy (Verified 03/12/20 09:04) Rash lansoprazole [From Prevacid] Allergy (Verified 03/12/20 09:04) Other meloxicam [From Mobic] Allergy (Verified 03/12/20 09:04) Rash shellfish derived Allergy (Verified 03/12/20 09:04) Anaphylaxis cefotetan Adverse Reaction (Verified 03/12/20 09:04) Diarrhea scopolamine Adverse Reaction (Verified 03/12/20 09:04) blurred vision,syncope WAX FROM FLOORS Allergy (Uncoded 08/12/19 09:24) Other Medications esomeprazole magnesium 20 mg capsule,delayed release 20 mg PO QHS cap 11/23/18 [History Confirmed 03/12/20] montelukast 10 mg tablet 10 mg PO QPM 11/23/18 [History Confirmed 03/12/20] Albuterol Aerosols [Ventolin Aerosols] 2.5 mg INHALATION Q6H PRN PRN 11/27/18 [History Confirmed 03/12/20] Albuterol IH (ProAir) [Proair Hfa] 1 - 2 puff INHALATION Q4H PRN PRN 11/27/18 [History Confirmed 03/12/20] albuterol sulfate 90 mcg/actuation aerosol inhaler 2 puff INHALATION Q6H PRN 03/12/20 [History Confirmed 03/12/20] cholecalciferol (vitamin D3) 125 mcg (5,000 unit) capsule 125 mcg PO DAILY 03/12/20 [History Confirmed 03/12/20] ivermectin 1 % topical cream 1 applic TOPICAL PRN g 03/12/20 [History Confirmed 03/12/20] medroxyprogesterone 5 mg tablet tab PO 03/12/20 [History Confirmed 03/12/20] triamcinolone acetonide 55 mcg nasal spray aerosol 2 spray INTRANASAL DAILY ml 03/12/20 [History Confirmed 03/12/20] Is last menstrual period known: No Post menopausal: Yes Patient : No PFSH Medical History Cholecystitis (Acute) Gastritis (Acute) Tubulovillous adenoma of colon (Acute) Asthma (Chronic) Positive colorectal cancer screening using Cologuard test (Chronic) Abdominal pain (Chronic) Acid reflux (Acute) Asthma (Acute) Environmental allergies (Acute) Surgical History (Updated 03/12/20 @ 09:15 by Sangeetha Espinoza) History of cholecystectomy (Acute ~2018) History of colectomy (Acute ~2019) Benign neoplasm of parotid gland (Acute) History of colonoscopy (Acute ~11/30/18) History of esophagogastroduodenoscopy (EGD) (Acute ~11/30/18) S/P lumpectomy, left breast (Acute) S/P tonsillectomy (Acute) S/P wisdom tooth extraction (Acute) Family History (Updated 03/12/20 @ 09:17 by Sangeetha Espinoza) Father Hypertension Kidney disease Cancer skin, kidney, prostate Mother Diabetes Hypertension Thyroid disorder Heart disease Kidney disease Hypercholesteremia Grandmother Breast cancer Brother Heart disease Aunt Breast cancer Social History (Updated 03/12/20 @ 09:[address] Ryan Avalos MD) Smoking Status: Never smoker alcohol intake: never HPI HPI HPI: JASMINE MICHELLE, is a 64 F who presents to the office today for surgical follow-up with a previous history of multiple colon polyps requiring a laparoscopic right colectomy for non-colonoscopically resectable disease. The patient states that she is currently doing well. She states that she has very active bowel sounds and some gas and some cramping. She used to take ranitidine but of course that is off the market. She claims that famotidine offers her no benefit. She is not any bright red blood per rectum or melena. Weight is been stable. December 13, 2018 MICROSCOPIC DIAGNOSIS A. Right colon, hemicolectomy:Tubulovillous adenoma with focal high grade dysplasia (5 cm in greatest dimension). Tubulovillous adenoma (1 cm in greatest dimension). Eleven pericolonic lymph nodes with reactive changes. Anastomotic line, no pathologic diagnosis. B. Gallbladder, cholecystectomy:Chronic cholecystitis and cholesterolosis.No stones are identified in the container or in the gallbladder. Colonoscopy November 30, 2018 MICROSCOPIC DIAGNOSIS A. Gastric antrum, biopsy:Mild to moderate chronic gastritis. Focal intestinal metaplasia without dysplasia.See comment. B. Distal esophagus, biopsy:No pathologic diagnosis. C. Cecal polyp, biopsy:Fragments of tubulovillous adenoma. D. Mid transverse colon mass, biopsy:Fragments of tubulovillous adenoma. E. Distal transverse colon polyp,biopsy:Fragments of tubular adenoma. F. Descending colon polyp, biopsy:Tubular adenoma HPI HPI HPI: JASMINE MICHELLE, is a 64 F who presents to the office today for ROS General General: Yes weight change; no appetite, fatigue, colon cancer, breast cancer or weakness HEENT HEENT: No difficulty swallowing, eye injury, eye surgery, swollen glands or hoarseness Endo Endocrine: No thyroid disease, diabetes mellitus, thyroid cancer, Hair loss, heat intolerance or cold intolerance Skin Skin: Yes rash; no changing moles Breast Breast: No left breast lump, right breast lump, nipple discharge, breast pain, abnormal mammogram, abnormal US or breast enlargement Musc Musculoskeletal: Yes arthritis; no back problems, rheumatoid arthritis, gout or joint pain Cardio Cardiovascular: No murmur, pacemaker, heart disease, atrial fibrillation, high blood pressure, heart attack, heart stent, palpitations, shortness of breat with exertion or chest pain Psych Psychiatric: No depression, anxiety or hearing voices Resp Respiratory: No shortness of breath, No sleep apnea, Yes cough, No COPD, Yes asthma, No emphysema, No wheezing Gastro Gastrointestinal: Yes abdominal pain, Yes nausea or vomiting, No diarrhea, No constipation, No blood in stool, Yes acid reflux, Yes hemorrhoids, No ulcers, No gallbladder problem, No black,tarry stools Ken Hematologic: No blood thinners, No blood disorders, No bleeding, No anemia, No blood clots Neuro Neurologic: No weakness Exam Const General: cooperative, healthy appearing Nutritional Appearance: obese Orientation: alert, awake [facility] Head: normal to inspection Eyes General: appearance normal, both eyes and all related structures Chest Breast Palpation: No nipple discharge Resp Effort & Inspection: normal respiratory effort Auscultation: clear to auscultation bilaterally Cardio Rate: regular rate Rhythm: regular rhythm Heart Sounds: no murmurs GI Palpation: soft, no hepatosplenomegaly Other: Well-healed vertical epigastric incision Musc Cervical Spine: normal cervical lordosis Neuro Cognition: normal cognition Extrem General: no calf tenderness Psych Affect: normal affect Assessment & Plan Problems 1. Tubulovillous adenoma of colon D12.6 Plan 64-year-old female. 1 year status post a laparoscopic right colectomy because of a tubulovillous adenoma of the proximal transverse colon with high-grade dysplasia. 5 cm in diameter. She had additional adenomas removed as well with colonoscopy. I recommend to her colonoscopy with possible biopsy or polypectomy as indicated. She is aware of the technique, benefit, risk and alternatives. She states that she has a hysterectomy scheduled for later in April. We will schedule and proceed as noted. I appreciate the ongoing opportunity of assisting with her surgical care. Copy: Dr. Gary Avalos M.D., F.A.C.S. Orders Orders: Colonoscopy Today Coding Level of Care Code Off vis,est,level 2 Diagnoses Tubulovillous adenoma of colon D12.6 I have re-examined the patient. There are no clinical changes since date of exam. Procedure Criteria Procedure Type: Elective COVID Risk Discussion: The surgeon/proceduralist and patient have discussed in detail the risk of exposure to and/or potential harm posed by the COVID-19 virus with having a surgery/procedure at this time versus the risk of delaying the surgery/procedure. It is not possible to know either the risk of delaying the surgery or procedure or chance of getting an infection with perfect accuracy, but a joint decision was made between the patient and the surgeon/proceduralist to proceed at this time with the scheduled surgery/procedure as indicated on the consent form.
[2020-04-07 07:46] VITALS: BP 161/77; PULSE 16; RESP 16; TEMP 27.7; O2SAT 100; BMI 34.6
--- NOTE | 2020-04-07 08:15 | COLBX_PTH ---
PATIENT: JASMINE MICHELLE LOC: EN U#:[id number] AGE/SX: 64/F ROOM: RE04/07/[address]: Dr. Ryan Avalos MD : 1955 BED: DIS: 04/07/2020 SPEC #: [id number] RECD: 04/07/20 10:29 STATUS: MARIAA MISBAH #: [id number] SOPHIA: 04/07/20 08:[address]: Ryan Avalos DEPT: SURGICAL PATHOLOGY RECD BY: Nneka Ramirez ENTERED: 04/07/20 12:14 SP TYPE: COLON BX OTHR DR: Dr. Gary Boogie MD Tissues: Sigmoid colon biopsy Procedures: Surgery Specimen Level IV HEADER OPERATION: Colonoscopy (MAC) PRE-OP DIAGNOSIS: Tubulovillous adenoma TISSUE SUBMITTED: Proximal sigmoid polyp MICROSCOPIC DIAGNOSIS Proximal sigmoid colon polyp, biopsy: Polypoid fragment of benign colonic mucosa with focal hyperplastic change. AM:cookie 04/08/20 COMMENT The lesion may represent a benign inflammatory polyp. Clinical correlation is suggested. MICROSCOPIC DESCRIPTION Slides are reviewed. GROSS DESCRIPTION Received in fixative is one container labeled with the patient's name and designated proximal sigmoid polyp. The specimen consists of one irregular fragment of light darling soft tissue that measures 0.5 x 0.3 x 0.1 cm. The specimen is totally submitted in one cassette. / AM:cookie 04/07/20 TC:5 CPT: 96733
[2020-04-07 08:53] VITALS: BP 118/54; BP 161/77; PULSE 80; RESP 16; TEMP 36.4; O2SAT 98
--- NOTE | 2020-04-07 08:53 | OP.COLON_ITS ---
Patient Name: Earlene Lopez Procedure Date: 04/07/2020 8:24 AM Date of : 1955 Age: 64 Procedure: Colonoscopy Indications: High risk colon cancer surveillance: Personal history of colonic polyps Providers: Ryan Avalos MD Referring MD: Gary Boogie Medicines: See the Anesthesia note for documentation of the administered medications Patient Profile: Last Colonoscopy: December 2018. Complications: No immediate complications. Procedure: Pre-Anesthesia Assessment: - Prior to the procedure, a History and Physical was performed, and patient medications and allergies were reviewed. The patient's tolerance of previous anesthesia was also reviewed. The risks and benefits of the procedure and the sedation options and risks were discussed with the patient. All questions were answered, and informed consent was obtained. Prior Anticoagulants: The patient has taken no previous anticoagulant or antiplatelet agents. ASA Grade Assessment: II - A patient with mild systemic disease. After reviewing the risks and benefits, the patient was deemed in satisfactory condition to undergo the procedure. After I obtained informed consent, the scope was passed under direct vision. Throughout the procedure, the patient's blood pressure, pulse, and oxygen saturations were monitored continuously. The Colonoscope was introduced through the anus and advanced to the ileocolonic anastomosis. The colonoscopy was performed without difficulty. The patient tolerated the procedure well. The quality of the bowel preparation was adequate to identify polyps. Ileocolonic anastomosis were photographed. Scope In: 8:33:07 AM Scope Withdrawal Time 0 hours 10 minutes 4 seconds Scope Out: 8:47:14 AM Total Procedure Duration Time 0 hours 14 minutes 7 seconds Findings: The perianal and digital rectal examinations were normal. A 7 mm polyp was found in the proximal sigmoid colon. The polyp was sessile. The polyp was removed with a hot snare. Resection and retrieval were complete. Scattered diverticula were found in the sigmoid colon and descending colon. There was evidence of a prior functional end-to-end ileo-colonic anastomosis in the proximal transverse colon. This was patent and was characterized by healthy appearing mucosa. Impression: - One 7 mm polyp in the proximal sigmoid colon, removed with a hot snare. Resected and retrieved. - Diverticulosis in the sigmoid colon and in the descending colon. - Patent functional end-to-end ileo-colonic anastomosis, characterized by healthy appearing mucosa. Recommendation: - Discharge patient to home. - Resume previous diet. - Continue present medications. - Repeat colonoscopy in 5 years for surveillance. - Telephone my office for pathology results in 1 week. Procedure Code(s): --- Professional --- 68862, Colonoscopy, flexible; with removal of tumor(s), polyp(s), or other lesion(s) by snare technique Diagnosis Code(s): --- Professional --- Z86.010, Personal history of colonic polyps D12.5, Benign neoplasm of sigmoid colon Z98.0, Intestinal bypass and anastomosis status K57.30, Diverticulosis of large intestine without perforation or abscess without bleeding CPT copyright 2017 [employer]. All rights reserved. The codes documented in this report are preliminary and upon remote coders review may be revised to meet current compliance requirements. Ryan Avalos MD 04/07/2020 8:53:15 AM This report has been signed electronically. Number of Addenda: 0 Note Initiated On: 04/07/2020 8:24 AM
--- NOTE | 2020-04-07 08:53 | OP.CCLET_ITS ---
04/07/2020 Gary Boogie Re : Colonoscopy procedure for Earlene Laddr Chuyita This procedure was performed on Tuesday, April 07, 2020. My impressions and recommendations are as follows: Impressions : - One 7 mm polyp in the proximal sigmoid colon, removed with a hot snare. Resected and retrieved. - Diverticulosis in the sigmoid colon and in the descending colon. - Patent functional end-to-end ileo-colonic anastomosis, characterized by healthy appearing mucosa. Recommendations : - Discharge patient to home. - Resume previous diet. - Continue present medications. - Repeat colonoscopy in 5 years for surveillance. - Telephone my office for pathology results in 1 week. My findings are described in the full procedure note, which is enclosed. If I can be of further assistance, please feel free to contact me at Doctor phone number(s): Work: . Sincerely, Ryan Avalos MD 04/07/2020 8:53:15 AM This report has been signed electronically.
[2020-04-07 08:55] VITALS: BP 130/61; BP 161/77; PULSE 75; RESP 16; O2SAT 100
[2020-04-07 09:00] VITALS: BP 140/70; BP 161/77; PULSE 73; RESP 16; O2SAT 99
[2020-04-07 09:10] VITALS: BP 131/79; BP 161/77; PULSE 74; RESP 16; TEMP 37.3; O2SAT 100
[2020-04-07 09:27] VITALS: BP 161/77
== END 2020-04-07 09:38 | disposition home or self-care (01) ==
LOC: EN 07:22 → AC 07:24
PROVIDERS: Anesthesiology; PCP Family Medicine; Referring Provider Family Medicine; Visit Provider Surgery
PROC: 0DJD8ZZ Inspection of Lower Intestinal Tract, Via Natural or Artificial Opening Endoscopic (ICD-10-PCS; CPT 45378; principal; 2020-04-07 08:10)
DX: Z12.11 Encounter for screening for malignant neoplasm of colon (principal); D12.5 Benign neoplasm of sigmoid colon; K57.30 Diverticulosis of large intestine without perforation or abscess without bleeding; Z11.59 Encounter for screening for other viral diseases; J45.909 Unspecified asthma, uncomplicated; K21.9 Gastro-esophageal reflux disease without esophagitis; E66.9 Obesity, unspecified; Z68.34 Body mass index [BMI] 34.0-34.9, adult; Z79.899 Other long term (current) drug therapy; Z78.0 Asymptomatic menopausal state; Z98.0 Intestinal bypass and anastomosis status; Z86.010 Personal history of colon polyps; Z90.49 Acquired absence of other specified parts of digestive tract
CPT/HCPCS: 45385; 87635; 88305; J7120; U0003

== ENCOUNTER 2020-05-04 06:09 | Day surgery (SDC) | payer OTHER, SELFPAY ==
[2019-08-12 09:34] VITALS: BMI 34.5
[2020-04-23 17:25] LABS: Hematocrit 42.8 % (37-47); Hemoglobin 13.2 g/dL (12.0-15.0); Mean Corp Hgb Conc 30.8 g/dL (32-36); Mean Corpuscular Volume 87.7 fL (81-99); Mean Platelet Vol. 11.9 fl (6.2-12.0); Platelet Count 238 K/mm3 (150-450); RBC Distribution Width CV 13.2 % (11.6-14.6); RBC Distribution Width SD 42.6 fl (35.1-43.9); Red Blood Count 4.88 M/mm3 (4.2-5.4); White Blood Count 8.6 K/mm3 (4.4-11.0)
[2020-04-23 17:40] LABS: Prothrombin Time (Protime)PT. 12.4 SECONDS (11.7-14.9)
[2020-04-23 17:41] LABS: Partial Thromboplast Time 27.3 Seconds (24.1-36.2)
[2020-04-23 17:55] LABS: ALB/GLOB Ratio 0.9 RATIO (0.9-2.4); AST(SGOT) 38 U/L (15-37); Alanine Aminotransfer ALT/SGPT 60 U/L (13-56); Albumin, Serum 3.8 g/dL (3.2-5.0); Alkaline Phosphatase 103 U/L (45-117); Anion Gap 5 (5-15); BUN 9 mg/dL (7-18); BUN/Creat Ratio 8.6 RATIO (10-20); Calcium,Total 9.7 mg/dL (8.5-10.1); Chloride 109 mmol/L (98-107); Creatinine, Serum 1.05 mg/dL (0.55-1.02); EST Glomerular Filtration Rate 56 mL/min (>60); Est Glom Filt Rate - Afr Amer 68 mL/min (>60); Globulin 4.1 g/dL (2.2-4.2); Glucose 120 mg/dL (74-106); Potassium 3.7 mmol/L (3.5-5.1); Protein, Total 7.9 g/dL (6.4-8.2); Sodium Level 142 mmol/L (136-145)
--- NOTE | 2020-04-24 13:06 | EKG12_ITS ---
Test Reason : PRE OP Blood Pressure : / mmHG Vent. Rate : 068 BPM Atrial Rate : 068 BPM P-R Int : 156 ms QRS Dur : 088 ms QT Int : 394 ms P-R-T Axes : 065 037 050 degrees QTc Int : 418 ms Normal sinus rhythm Normal ECG Confirmed by DANNA MILLER, MARY ([id number]), editor index LAUREANO NAIDU ([id number]) on 04/27/2020 8:12:11 AM Referred By: Alexsander Bean Confirmed By:MARY CLAY MD
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
[2020-05-04] VITALS (13 sets, daily range): BP systolic 142–173; BP diastolic 62–75; PULSE 70–91; RESP 16–18; TEMP 36.4–37.2; O2SAT 96–100; BMI 35.4
[2020-05-04] MEDS: Lactated Ringers 1,000 ML 100 ML IV ×2 (07:10→07:14)
[2020-05-04] MEDS: Cefotetan 2 GM in 0.9% NS 100 ML IV (07:30)
--- NOTE | 2020-05-04 07:30 | HYST_PTH ---
PATIENT: JASMINE MICHELLE [place] [facility] [place][id number] AGE/SX: 64/F ROOM: RE05/04/[address]: Dr. Alexsander Bean MD : [id number] BED: DIS: 05/04/2020 SPEC #: [id number] RECD: 05/04/20 11:57 STATUS: MARIAA MISBAH #: [id number] SOPHIA: 05/04/20 07:[address]: Alexsander Bean DEPT: SURGICAL PATHOLOGY RECD BY: Nneka Ramirez ENTERED: 05/04/20 12:24 SP TYPE: HYSTERECT OTHR DR: Dr. Gary Boogie MD Tissues: Uterus, NOS Procedures: Surgery Specimen Level V HEADER OPERATION: Robotic assisted vaginal hysterectomy, bilateral salpingo-oophorectomy PRE-OP DIAGNOSIS: Postmenopausal bleeding and simple EM hyperplasia TISSUE SUBMITTED: Uterus, cervix, bilateral fallopian tubes and ovaries MICROSCOPIC DIAGNOSIS Uterus, cervix, bilateral fallopian tubes and ovaries, vaginal hysterectomy and bilateral salpingo-oophorectomy: Cervix - mild chronic cystic cervicitis. Endometrium - proliferative endometrium with focal cystic changes. Myometrium - intramural leiomyomas (largest measuring 3 cm in greatest dimension. Focal adenomyosis. Bilateral fallopian tubes - no pathologic diagnosis. Left ovary - no pathologic diagnosis. Right ovary - simple benign epithelial cyst (0.5 cm in greatest dimension). Focal left tubo-ovarian adhesions. SJ:cookie 05/05/20 COMMENT Please make reference to previous specimen ([id number]) endometrial curettings with diagnosis of fragments of endometrial polyp with simple endometrial hyperplasia without atypia and scant strips of benign endometrial epithelium. MICROSCOPIC DESCRIPTION Slides are reviewed. GROSS DESCRIPTION Received in fixative is one container labeled with the patient's name and designated uterus, cervix, bilateral fallopian tubes and bilateral ovaries. The specimen consists of a hysterectomy specimen consisting of uterus with cervix, attached right ovary, attached left fallopian tube and ovary and detached right fallopian tube. The uterus with cervix weighs 69 gm and measures 10 x 6 x 5 cm. The serosal surface is darling, glistening. The ectocervical mucosa is unremarkable. The external os is circular in contour and patulous. The endocervical canal measures 4 cm in length and the endocervical mucosa is darling, glistening and unremarkable. The triangular endometrial cavity measures 5 cm in length and up to 2?cm in width. The endometrium is darling, glistening without any mass lesion and measures 0.1 cm in thickness. Sections of the uterine wall reveal one nodular mass measuring 3 cm in greatest dimension and two smaller nodular masses measuring 0.5 to 0.7 cm in greatest dimension. Sections of these masses reveal darling whorled cut surfaces without areas of hemorrhage, necrosis or cystic degeneration. The uninvolved uterine wall measures up to 2 cm in thickness. The left fallopian tube measures 3 cm in length and 0.6 cm in diameter. The fimbrial end is not identified. The distal end of the fallopian tube is adherent to ovary. The left ovary measures 2.5 x 1.5 x 1.5 cm. Sections reveal unremarkable cut surfaces. The right ovary measures 2.5 x 2 x 1.5 cm. Sections reveal a cyst filled with clear fluid measuring 0.5 cm in greatest dimension. The detached right fallopian tube measures 5 cm in length and 0.3 cm in diameter. Sections reveal a focal area suspicious for fimbrial end is noted. Sections reveal unremarkable cut surfaces. Human Geography Instructor sections are submitted in 12 cassettes as follows: 1??anterior cervix, 2 - posterior cervix, 3-5 - anterior uterine wall, 6-8 - posterior uterine wall, entire endometrium is submitted, 9 - nodular masses, 10 - left fallopian tube and ovary, 11 - right ovary, 12??right fallopian tube. / CRIS:cookie 05/04/20 TC:1 CPT: 35227
[2020-05-04] MEDS: Ropivacaine 0.5% 30 ML Vial (08:15)
--- NOTE | 2020-05-04 10:07 | OP.PCM_ITS ---
Report of Operation Date of Procedure: 05/04/20 Pre-Operative Diagnosis: Postmenopausal Bleeding, Simple Endometrial Hyperplasia Post-Operative Diagnosis: Postmenopausal Bleeding, Simple Endometrial Hyperplasia, Adhesions Surgery/Procedure Performed:: Robotic Assisted Vaginal Hysterectomy, Bilateral Salpingo-Oophorectomy, Lysis of Adhesions Description of Surgical Findings:: 12 cm uterus with normal-appearing fallopian tubes and ovaries. Evidence of prior tubal ligation. Adhesions of the omentum to the anterior abdominal wall. Evidence of prior section with adhesions of bladder to anterior uterus. Adhesions of the omentum to the anterior abdominal wall near the umbilicus. 2 cm left cervical fibroid. purchasing manager/sales: Derek Perrin Type of Anesthesia:: General - Endotracheal Anesthesiologist: Earl Gonzalez Specimen's removed: Uterus and bilateral fallopian tubes and ovaries Drains: Gomez to straight drain Estimated Blood Loss (mL): Minimal Fluids Replaced: Crystalloid Description of Procedure: Surgeon: Alexsander Bean MD, FACOG Indication: This is a 64 year old patient who has been having problems with postmenopausal bleeding and simple endometrial hyperplasia. Conservative measures have not been helpful. Patient's history is remarkable for a prior right colectomy. The patient has been counseled regarding the risks, benefits and alternatives of this procedure including the possibility of bleeding, infection, and injury to surrounding structures such as bowel bladder and all questions were answered. Procedure: Pt taken to the operating room where, after induction of general anesthesia, the patient was prepped and draped in the usual sterile fashion and placed on a non-slip Huggy-u-vac device. Trendelenburg test was satisfactory. Bladder was drained of urine with a Gomez catheter which was left in place. Anterior cervix grasped and cervix was dilated to about 3-4 mm. Uterus sounded to 11 cms. 0-Vicryl suture was placed at the 3:00 and 9:00 position of the cervix. A small Advincula Hog Cutter Uterine Manipulator was then placed in the uterus and attention was turned to the laparoscopic portion of the procedure. Ropivocaine 0.5% was injected approximately 2-3 cm superior to the umbilicus and an 8 mm robotic left port was introduced directly with intraperitoneal placement confirmed with CO2 insufflation. The above findings were noted and it was decided to take down some of the adhesions with the Enseal device. A 5 mm suprapubic port was introduced under direct visualization after injecting some ropivacaine. Using the Enseal device the adhesions superior to the umbilicus w ere taken down sufficiently to allow introduction of the 8 mm robotic camera port. 8 mm robotic right side port was introduced under direct visualization approximately 11 cm lateral and 2 cm inferior to the umbilical port. A 5 mm left upper quadrant port was introduced and airseal insufflation with CO2 was started. The above findings were noted. Robot was docked without difficulty and attention turned to the robotic portion of the procedure. Approximately 30 cc of Ropivicaine was used. Bilateral infundibulopelvic ligaments were ligated with 35 coronel bipolar coagulation to the level of the round ligament after taking down some omental adhesions to the right round ligament with the bipolar and monopolar scissors. The posterior aspect of the cervix was identified and then opened for about 1 cm using 25 watt monopolar cautery. Bladder flap was opened and divided to the level of the round ligaments using monopolar cautery. Progressive bites were then ligated on each side of the cervix with 35 coronel bipolar cautery to the uterine arteries. The anterior vaginal mucosa was entered and cervix circumscribed with monopolar cautery. Uterus and attached tubes and ovaries were removed through the vagina. Vaginal cuff was closed first with 0-Vicryl Navid stitches placed at each angle followed by closure of the mid-cuff with 0- Monocryl V-lock suture in two layers. Pelvis was copiously irrigated with saline and the right and left ureter were noted to peristalse. Robot was undocked and trocars were removed with as much gas as possible. Incisions were closed with 4-0 Monocryl subcuticular sutures and incisions covered with steri-strips. The patient tolerated the procedure well and was taken to the recovery room in satisfactory condition. Sponge, instruments and needle counts were all correct. There were no apparent complications of the surgery. Cefotan 2 gms IV was given prior to the procedure. Grafts/Implants Used: None - Complications None - Admit VTE Documentation VTE Present on Admission: Yes VTE Pharm Prophylaxis ordered?: Yes
--- NOTE | 2020-05-04 10:17 | DCINST_ITS ---
Discharge Diet: No Restrictions Discharge Activity: Return to Normal Activity, May Not Drive - while taking narcotic pain medications., May Shower, May Take a Tub Bath May resume sexual activity in: 6-8 weeks Call your doctor if your incision/area has: Continuous Slow Oozing, Sudden Inc reased Bleeding, Increased Pain/ Swelling, Increased Redness, Foul Smelling Discharge Call your doctor if you observe: Fever of 101 or Higher, Inability to urinate, Inability to have a bowel movement, Using more than one pad per hour Allergies/Adverse Reactions: Allergies nitrile Allergy (Severe, Verified 05/04/20 06:47) shortness of breath and rash dexlansoprazole [From Dexilant] Allergy (Mild, Verified 05/04/20 06:47) Unknown bee pollen Allergy (Verified 05/04/20 06:47) Anaphylaxis bee venom protein (honey bee) Allergy (Verified 05/04/20 06:47) Anaphylaxis bisacodyl [From Dulcolax (bisacodyl)] Allergy (Verified 05/04/20 06:47) Itching erythromycin base Allergy (Verified 05/04/20 06:47) Rash Fish Containing Products Allergy (Verified 05/04/20 06:47) Rash fish derived Allergy (Verified 05/04/20 06:47) Rash fish oil Allergy (Verified 05/04/20 06:47) Rash lansoprazole [From Prevacid] Allergy (Verified 05/04/20 06:47) Other meloxicam [From Mobic] Allergy (Verified 05/04/20 06:47) Rash shellfish derived Allergy (Verified 05/04/20 06:47) Anaphylaxis cefotetan Adverse Reaction (Verified 05/04/20 06:47) Diarrhea scopolamine Adverse Reaction (Verified 05/04/20 06:47) blurred vision,syncope WAX FROM FLOORS Allergy (Uncoded 05/04/20 06:47) Other Medications to take at Discharge esomeprazole magnesium 20 mg capsule,delayed release 20 mg PO QHS cap 11/23/18 montelukast 10 mg tablet 10 mg PO QPM 11/23/18 Albuterol Aerosols [Ventolin Aerosols] 2.5 mg INHALATION Q6H PRN PRN 11/27/18 Albuterol IH (ProAir) [Proair Hfa] 1 - 2 puff INHALATION Q4H PRN PRN 11/27/18 albuterol sulfate 90 mcg/actuation aerosol inhaler 2 puff INHALATION Q6H PRN 03/12/20 cholecalciferol (vitamin D3) 125 mcg (5,000 unit) capsule 125 mcg PO DAILY 03/12/20 ivermectin 1 % topical cream 1 applic TOPICAL PRN PRN g 03/12/20 triamcinolone acetonide 55 mcg nasal spray aerosol 2 spray INTRANASAL DAILY ml 03/12/20 Docusate Sodium [Colace] 100 mg PO BID PRN PRN #60 cap 05/04/20 Oxycodone [Oxyir] 5 mg PO Q6H PRN PRN 7 Days #10 tablet 05/04/20 The following prescriptions were given: Docusate Sodium [Colace] 100 mg PO BID PRN PRN #60 cap PRN Reason: Constipation Transmission Status: Pending to [facility] Oxycodone [Oxyir] 5 mg PO Q6H PRN PRN 7 Days #10 tablet PRN Reason: Pain Score 6-10 Transmission Status: Sent to [facility] Primary Care Physician: Gary Boogie MD [Primary Care Provider] - Test Results: Test results from this visit will be discussed in further detail at your follow- up appointment, if applicable. Please Follow Up With: Alexsander Bean MD When: 2-3 weeks
[2020-05-04] MEDS: Dextrose 5%-Lactated Ringers 1,000 ML 150 ML IV (12:43)
[2020-05-04] MEDS: oxyCODONE 5 MG Tablet PO (16:06)
== END 2020-05-04 17:52 | disposition home or self-care (01) ==
LOC: SDC 06:09 → AC 06:10 → MS3 11:28
PROVIDERS: Anesthesiology; PCP Family Medicine; Referring Provider Obstetrics & Gynecology; Visit Provider Obstetrics & Gynecology
PROC: 0UT94ZZ Resection of Uterus, Percutaneous Endoscopic Approach (ICD-10-PCS; CPT 58552; principal; 2020-05-04 07:10)
DX: D25.1 Intramural leiomyoma of uterus (principal); N80.0 Endometriosis of uterus; Z20.828 Contact with and (suspected) exposure to other viral communicable diseases; N83.291 Other ovarian cyst, right side; N73.6 Female pelvic peritoneal adhesions (postinfective); N85.01 Benign endometrial hyperplasia; N95.0 Postmenopausal bleeding; J45.909 Unspecified asthma, uncomplicated; K21.9 Gastro-esophageal reflux disease without esophagitis; Z79.899 Other long term (current) drug therapy; Z78.0 Asymptomatic menopausal state; Z90.49 Acquired absence of other specified parts of digestive tract
CPT/HCPCS: 00840; 58552; S2900; 36415; 80053; 85027; 85610; 85730; 86850; 86900; 86901; 87635; 88307; 93005; C9803; J7120; A4216; J2405; U0003

== ENCOUNTER → 2020-06-26 14:52 | Outpatient (CLI) | payer OTHER, SELFPAY ==
[2020-05-04 12:29] VITALS: BMI 35.4
--- NOTE | 2020-06-25 16:17 | BI_ITS ---
MAMMOGRAPHY - BILATERAL SCREENING REASON FOR EXAM: Female, 64 years old. Routine annual screening examination. PERTINENT HISTORY: Grandmother with breast cancer. History of prior bilateral breast biopsies. TECHNIQUE: Digital bilateral breast anisa (3D mammographic acquisition) in the CC and MLO projections. 2-D mediolateral oblique (MLO) and craniocaudad (CC) views of both breasts were obtained. CAD: Full Field Digital Mammography with Computer Added Detection was performed. COMPARISON: Comparison is made with prior study dated 11/14/2018 and 08/03/2016. FINDINGS: Breast Composition: The breasts are heterogeneously dense, which may obscure small masses. There are no dominant masses or suspicious calcifications. There are 2 tissue marker seen in the retroareolar region of the right breast. Stable benign-appearing bilateral axillary lymph nodes. No other significant abnormalities are identified. There has been no significant change since the prior study. BI/SCREEN MAMM (CAD) W/ANISA BILAT IMPRESSION: Stable bilateral screening mammogram. Yearly follow-up mammogram recommended. (A) ASSESSMENT CATEGORY: BIRADS Category 2: Benign. A letter regarding these results will be sent to the patient by the facility within 30 days. Approximately 10% of breast cancers are not detected by mammography. A normal mammogram should not delay biopsy of a clinically suspicious abnormality. [id number] Electronically Signed: Karan Prado, at 8:19 EST , Service support ,
== END ==
PROVIDERS: PCP Family Medicine; Referring Provider Obstetrics & Gynecology; Visit Provider Obstetrics & Gynecology
DX: Z12.31 Encounter for screening mammogram for malignant neoplasm of breast (principal)
CPT/HCPCS: 77063; 77067

== ENCOUNTER 2021-07-18 12:09 | Emergency (ER) | payer MEDICARE, SELFPAY ==
[2021-07-18 12:09] VITALS: BP 106/77; PULSE 109; RESP 22; TEMP 37.1; O2SAT 96; BMI 32.6
--- NOTE | 2021-07-18 12:31 | EKG12_ITS ---
Test Reason : CP Blood Pressure : / mmHG Vent. Rate : 087 BPM Atrial Rate : 087 BPM P-R Int : 150 ms QRS Dur : 090 ms QT Int : 344 ms P-R-T Axes : 059 024 029 degrees QTc Int : 413 ms Sinus rhythm with occasional Premature ventricular complexes Nonspecific ST abnormality Abnormal ECG Confirmed by DANNA MILLER, MARY ([id number]), publication editor CHAPO JONES ([id number]) on 07/20/2021 1:33:23 PM Referred By: JARRED/ISHAAN Confirmed By:MARY CLAY MD
--- NOTE | 2021-07-18 12:31 | CT_ITS ---
STUDY: CTA CHEST REASON FOR EXAM: Female, 65 years old. Dyspnea RADIATION DOSAGE (If Supplied By Facility): CTDIvol = ( 12.49 ) mGy, DLP = ( 554.53 ) mGycm TECHNIQUE: The examination was performed with the intravenous administration of IV 100mL Isovue-370. Post-processing of the angiographic images was performed, with multiplanar reformation and 3D reconstruction. Individualized dose optimization techniques were used for this CT. COMPARISON: None. FINDINGS: No filling defect in the pulmonary arteries to suggest pulmonary embolism. Intact thoracic aorta. No pleural or pericardial effusion. No adenopathy. No pneumothorax. Small peripheral groundglass densities throughout the bilateral lungs, consistent with Covid 19 pneumonia in the appropriate clinical setting. Left lower lobe platelike atelectasis versus linear scars. Sections through the upper abdomen demonstrate marked diffuse hepatic steatosis. Multilevel thoracic spondylosis. CT/CTA Chest W/WO Contrast IMPRESSION: No evidence of pulmonary embolism. Findings consistent with multifocal Covid 19 pneumonia in the appropriate clinical setting. Marked diffuse hepatic steatosis. Electronically Signed: Tapan Preston MD at 16:49 EST Tel , Service support ,
--- NOTE | 2021-07-18 12:33 | ED.VIS.CHEST ---
HPI History of Present Illness Chief Complaint: Chest Pain Informant: patient Onset/Context/Timing Onset: Weeks (1) Activity at onset: gradual Timing: Continuous Quality: Positive for Tightness Location: Right Chest and Left Chest Worsened By: Nothing Relieved By: Nothing Associated Symptoms: Positive for Nausea, Diaphoresis, Dyspnea, Cough, Fever, Lightheadedness, Acid Reflux and Palpitations; Negative for Vomiting Narrative Narrative: Patient presents with chest pain that has been constant for the past week. Patient states it is over her lower chest and wraps around her chest. Patient describes as a tightness. Patient states it gets better with aerosol treatments and with prednisone. Patient does admit to some shortness of breath and diaphoresis with the pain. Patient also admits to some nausea but denies any vomiting. Patient states she was diagnosed with COVID-19 approximately 9 days ago. Patient states she had a monoclonal antibody infusion which helped for couple days. Patient states her fevers came back. Patient states her fever at home was up to 101.6. Patient admits to occasional palpitations. CVD Risk Factors: Negative for Hypertension, Diabetes, Hypercholesterolemia, Family History 1' </=55 and Smoking PE Risk Factors: Negative for Recent Travel/Surgery, Prior DVT or PE, Cancer and OCP + Smoking + >/=35 PFSH [facility] Medical History Abdominal pain Acid reflux Asthma Asthma Cholecystitis Environmental allergies Gastritis Positive colorectal cancer screening using Cologuard test Tubulovillous adenoma of colon Home Medications esomeprazole magnesium 20 mg capsule,delayed release 20 mg PO QHS cap 11/23/18 [History Last Taken 05/04/20 05:30 20 MG] montelukast 10 mg tablet 10 mg PO QPM 11/23/18 [History Last Taken Unknown] albuterol sulfate 1 - 2 puff INHALATION Q4H PRN PRN 11/27/18 [History Last Taken 12/13/18] albuterol sulfate 2.5 mg INHALATION Q6H PRN PRN 11/27/18 [History Last Taken 05/04/20 05:30 2.5 MG] albuterol sulfate 90 mcg/actuation aerosol inhaler 2 puff INHALATION Q6H PRN 03/12/20 [History Last Taken Unknown] cholecalciferol (vitamin D3) 125 mcg (5,000 unit) capsule 125 mcg PO DAILY 03/12/20 [History Last Taken Unknown] ivermectin 1 % topical cream 1 applic TOPICAL PRN PRN g 03/12/20 [History Last Taken Unknown] triamcinolone acetonide 55 mcg nasal spray aerosol 2 spray INTRANASAL DAILY ml 03/12/20 [History Last Taken Unknown] docusate sodium 100 mg PO BID PRN PRN #60 cap 05/04/20 [Rx Last Taken Unknown] Allergy/AdvReac Type Severity Reaction Status Date / Time nitrile Allergy Severe shortness Verified 07/18/21 12:13 of breath and rash dexlansoprazole Allergy Mild Unknown Verified 07/18/21 12:13 [From Dexilant] Iodinated Contrast Media Allergy Mild Hives Verified 07/18/21 15:36 bee pollen Allergy Anaphylaxis Verified 07/18/21 12:13 bee venom protein (honey bee) Allergy Anaphylaxis Verified 07/18/21 12:13 bisacodyl Allergy Itching Verified 07/18/21 12:13 [From Dulcolax (bisacodyl)] erythromycin base Allergy Rash Verified 07/18/21 12:13 Fish Containing Products Allergy Rash Verified 07/18/21 12:13 fish derived Allergy Rash Verified 07/18/21 12:13 fish oil Allergy Rash Verified 07/18/21 12:13 lansoprazole [From Prevacid] Allergy Other Verified 07/18/21 12:13 meloxicam [From Mobic] Allergy Rash Verified 07/18/21 12:13 shellfish derived Allergy Anaphylaxis Verified 07/18/21 12:13 cefotetan AdvReac Diarrhea Verified 07/18/21 12:13 scopolamine AdvReac blurred Verified 07/18/21 12:13 vision,syncope WAX FROM FLOORS Allergy Other Uncoded 07/18/21 12:13 Family History (Updated 03/12/20 @ 09:17 by Sangeetha Espinoza) Father Hypertension Kidney disease Cancer skin, kidney, prostate Mother Diabetes Hypertension Thyroid disorder Heart disease Kidney disease Hypercholesteremia Grandmother Breast cancer Brother Heart disease Aunt Breast cancer Surgical History Benign neoplasm of parotid gland History of cholecystectomy (~2018) History of colectomy (~2019) History of colonoscopy (~11/30/18) History of esophagogastroduodenoscopy (EGD) (~11/30/18) S/P lumpectomy, left breast S/P tonsillectomy S/P wisdom tooth extraction Social History Smoking Status: Never smoker alcohol intake: never ROS ROS ED Constitutional Constitutional ED: Denies chills or fever(s) Eyes Eyes: Denies blurry vision or change in vision ENT ENT ED: Denies rhinorrhea or sore throat Cardiovascular Cardiovascular: Reports chest pain and palpitations Respiratory/Chest Respiratory/Chest: Reports cough, dyspnea and sputum Gastrointestinal Gastrointestinal: Reports nausea; Denies abdominal pain or vomiting Genitourinary Genitourinary ED: Denies dysuria or hematuria Musculoskeletal Musculoskeletal: Reports back pain and neck pain Integumentary Denies abscess or rash Neurologic Neurologic: Reports headache(s); Denies weakness Allergic/Immunologic Allergic/Immunologic ED: Denies mouth swelling or urticaria EXAM Physical Exam Const Vital Signs: 07/18/21 12:09 07/18/21 12:34 07/18/21 12:49 Temperature 98.7 F Temperature Source Temporal Pulse Rate 109 H Respiratory Rate 22 H Respiratory Effort Normal Non-Labored Blood Pressure 106/77 Blood Pressure Mean 86 Pulse Ox 96 98 Oxygen Delivery Method Room Air Room Air 07/18/21 13:22 07/18/21 14:34 07/18/21 15:32 Temperature Temperature Source Pulse Rate 78 82 83 Respiratory Rate 18 18 Respiratory Effort Blood Pressure 188/72 H 182/82 H 178/82 H Blood Pressure Mean 110 115 114 Pulse Ox 98 98 96 Oxygen Delivery Method Room Air Room Air Room Air Positive well nourished, well developed and obese General Appearance ED: well developed Nutritional Appearance: obese HEENT normocephalic and atraumatic Eyes PERRL and EOMs intact bilaterally Neck supple and no JVD Chest Wall palpation of chest normal Resp normal respiratory effort and clear to auscultation bilaterally Effort and Inspection: Negative for respiratory distress Cardio regular rate, regular rhythm and no murmurs GI normal to inspection, nondistended, normoactive bowel sounds, soft to palpation, non-tender and non-distended Extremity normal to inspection Extremity Narrative: There is some mild tenderness over the left calf. There is minimal edema. There is no induration. There is a strong posterior tibial pulse noted. General Extremety ED: Yes tenderness; Negative for edema General Extremity: Negative for edema Neuro oriented x3, CN's II-XII intact bilaterally and no sensory deficits noted Sensorium / Orientation: awake and alert Motor Exam: strength 5/5 throughout Psych mental status grossly normal Heart Score History: Moderately Suspicious ECG: Nonspecific Repolarization Age: >45 - <65 years Risk Factors: No Risk Factors Troponin: </= Normal Limit Score: 3 MDM MDM MDM Narrative Medical decision making narrative: Patient was given aspirin here. EKG was obtained. On my interpretation, it showed a normal sinus rhythm with a rate of 87. [place] interval, QRS interval, and QTc intervals were all normal. [place] was normal. There are nonspecific ST-T wave changes. CTA of the chest was obtained. 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 There is no evidence of pulmonary embolism. There is findings consistent with COVID-19 pneumonia. This was interpreted by the radiologist and reviewed by myself. CBC was within normal limits. Basic metabolic profile was essentially within normal limits. Initial high-sensitivity troponin was normal at 15. 2-hour repeat high-sensitivity troponin was 33. The delta is 18. Because of this, I recommended admission for further cardiac evaluation to the patient. Case was discussed with the hospitalist. She states that since she is Covid positive, she is unable to have a stress test. She recommended discussing the case with cardiology. The case was discussed with Dr. Joel, market asset protection manager on-call. He recommends outpatient follow-up with her market asset protection manager. Patient is agreeable with this plan. All questions were answered. Lab Data Attestation: I reviewed the patient's lab results. Labs: Laboratory Results - last 24 hr 07/18/21 07/18/21 07/18/21 13:12 13:12 15:28 WBC 9.8 RBC 5.05 Hgb 13.9 Hct 43.2 MCV 85.5 MCH 27.5 MCHC 32.2 RDW Std Deviation 39.6 RDW Coeff of Karen 12.8 Plt Count 229 MPV 10.5 Immature Gran % (Auto) 0.800 Neut % (Auto) 84.3 H Lymph % (Auto) 9.7 L [place] % (Auto) 4.9 Eos % (Auto) 0.1 Baso % (Auto) 0.2 Absolute Neuts (auto) 8.2 H Absolute Lymphs (auto) 0.95 Nucleated RBC % 0 Sodium 142 Potassium 3.5 Chloride 104 Carbon Dioxide 29.0 Anion Gap 9 BUN 14 Creatinine 0.78 Estim Creat Clear Calc 74.47 Est GFR (MDRD) Af Amer 95 Est GFR (MDRD) Non-Af 79 BUN/Creatinine Ratio 17.9 Glucose 142 H Calcium 9.0 Troponin I High Sens 15 33 Radiography Diagnostic Testing: Clinical Impression(s) from Imaging Studies Chest CTA 07/18/21 12:31 IMPRESSION: No evidence of pulmonary embolism. Findings consistent with multifocal Covid 19 pneumonia in the appropriate clinical setting. Marked diffuse hepatic steatosis. Electronically Signed: Tapan Preston MD at 16:49 EST Tel , Service support , EKG Initial EKG: Attestation: I personally reviewed and interpreted this EKG as follows: Interpretation: Sinus Rhythm (87 with occasional PVC) and Non-Specific ST Changes Prior EKG tracings: available for review Prior: Unchanged (04/24/2020) Treatment and Re-Evaluation Vital Sign Attestation:: Vital signs were reviewed prior to admission. They are stable. Discharge Plan Triage Chief Complaint: Chest Pain ED Provider: Carlos Arce Dx/Rx/DC Orders Clinical Impression: Chest pain, Pneumonia due to COVID-19 virus Instructions: Coronavirus Disease 2019 (COVID-19): Overview, ED Chest Pain, Uncertain Cause Prescriptions: No Action esomeprazole magnesium [Nexium] 20 mg capsule,delayed release(DR/EC) 20 mg PO QHS RF: 0 montelukast [Singulair] 10 mg tablet 10 mg PO QPM RF: 0 albuterol sulfate [ProAir HFA] 90 mcg/actuation HFA aerosol inhaler 2 puff INHALATION Q6H PRN (Reason: Asthma) RF: 0 ivermectin 1 % cream 1 applic TOPICAL PRN PRN (Reason: ROSCEA) RF: 0 cholecalciferol (vitamin D3) 125 mcg (5,000 unit) capsule 125 mcg PO DAILY RF: 0 triamcinolone acetonide [Nasacort] 55 mcg aerosol,spray 2 spray INTRANASAL DAILY RF: 0 albuterol sulfate 1 PUFF inhaler 1 - 2 puff inhalation Q4H PRN PRN (Reason: Asthma) RF: 0 albuterol sulfate 2.5 MG/3 ML solution for nebulization 2.5 mg inhalation Q6H PRN PRN (Reason: Asthma) RF: 0 docusate sodium 100 MG capsule 100 mg PO BID PRN PRN (Reason: Constipation) Qty: 60 RF: 1 Primary Care Provider: Gary Boogie Referrals: Gary Boogie MD [Primary Care Provider] - 3-5 Days Disposition Disposition: Home, Self Care
[2021-07-18 12:34] VITALS: O2SAT 98
--- NOTE | 2021-07-18 12:36 | ED.RN ---
this RN entered the room to start an IV and draw labs, pt asked what the dr had ordered. this RN stated that there were not orders yet, howerver because the pt is here for cp and sob this RN was going to start the IV. this RN also stated that the dr had verbally stated that she would be getting an IV. pt refused IV and blood work until the orders were placed.
--- NOTE | 2021-07-18 13:16 | ED.RN ---
PT. REFUSED NITRO AT THIS TIME. STATED THAT ANTERIOR CHEST PAIN IS NOT THAT BAD. I WILL LET YOU KNOW IF I NEED IT LATER. I DON'T WANT THE ASPIRIN. I ALREADY TOOK FOUR BABY ASPIRIN THIS MORNING.
[2021-07-18 13:22] VITALS: BP 188/72; PULSE 78; RESP 18; O2SAT 98
[2021-07-18 13:26] LABS: Absolute Lymphocyte Count 0.95 X10^3/uL (0.83-4.51); Absolute Neutrophil Count 8.2 X10^3/uL (2.0-7.7); Basophil# 0.02 X10^3/uL; Basophil% 0.2 % (0-1); Eosinophil# 0.01 X10^3/uL; Eosinophils% 0.1 % (0-5); Hematocrit 43.2 % (37-47); Hemoglobin 13.9 g/dL (12.0-15.0); Lymphocyte # 0.95 X10^3/ul (0.83-4.51); Lymphocyte % 9.7 % (19-41); Mean Corp Hgb Conc 32.2 g/dL (32-36); Mean Corpuscular Hgb 27.5 pg (27.0-32.0); Mean Corpuscular Volume 85.5 fL (81-99); Mean Platelet Vol. 10.5 fl (6.2-12.0); Monocyte# 0.48 X10^3/uL; Monocyte% 4.9 % (0-10); NRBC Flagged by Analyzer 0 % (0-5); Neutrophil # 8.21 X10^3/uL (2.7-7.7); Neutrophil % 84.3 % (47-70); Platelet Count 229 K/mm3 (150-450); RBC Distribution Width CV 12.8 % (11.6-14.6); RBC Distribution Width SD 39.6 fl (35.1-43.9); Red Blood Count 5.05 M/mm3 (4.2-5.4); White Blood Count 9.8 K/mm3 (4.4-11.0)
[2021-07-18 13:43] LABS: Anion Gap 9 (5-15); BUN 14 mg/dL (7-18); BUN/Creat Ratio 17.9 RATIO (10-20); Chloride 104 mmol/L (98-107); Creatinine, Serum 0.78 mg/dL (0.55-1.02); EST Glomerular Filtration Rate 79 mL/min (>60); Est Glom Filt Rate - Afr Amer 95 mL/min (>60); Estimated Creatinine Clearance 74.47 ml/min; Glucose 142 mg/dL (74-106); Potassium 3.5 mmol/L (3.5-5.1); Sodium Level 142 mmol/L (136-145); Troponin-I HS 15 pg/mL (3.0-54.0)
[2021-07-18] MEDS: DiphenhydrAMINE 50 MG/ML Syringe 25 MG IV (14:11)
[2021-07-18] MEDS: MethylPREDNISolone 125 MG/2 ML Vial 80 MG IV (14:11)
[2021-07-18] MEDS: Famotidine 200 MG/20 ML MDV 20 MG in 0.9% Normal Saline (Pres. free 8 ML 300 MG IV (14:13)
[2021-07-18 14:34] VITALS: BP 182/82; PULSE 82; O2SAT 98
[2021-07-18 15:32] VITALS: BP 178/82; PULSE 83; RESP 18; O2SAT 96
[2021-07-18 15:58] LABS: Troponin-I HS 33 pg/mL (3.0-54.0)
--- NOTE | 2021-07-18 17:19 | ED.RN ---
PT. WAS UP AT SINK TAKING OUT IV. NURSES WENT IN TO LET PT. KNOW THAT NURSE NEEDS TO TAKE OUT IV AND WE DO NOT HAVE DISCHARGE PAPERWORK AT THIS TIME. PT. BECAME ANGRY AND RIPPED OUT IV AND THREW IV IN THE SINK. CHARGE NURSE AT BEDSIDE AT THIS TIME.
--- NOTE | 2021-07-18 17:24 | ED.RN ---
PT. WAS INSTRUCTED THAT THEY CANNOT GO BACK TO HUSBANDS ROOM DUE TO HER BEING COVID POSITIVE AND SHE IS NOW DISCHARGED. WE EXPLAINED THAT IT IS OUR POLICY THAT SHE CAN NOT WANDER IN THE HALLS. PT. SAID CALL THE POLICE, AND WALKED BACK TO PT. ROOM. SECURITY HAS BEEN CALLED. PT. HAD PREVIOUSLY WALKED BACK TO HUSBANDS ROOM AFTER GOING TO THE BATHROOM, PREVIOUSLY IN THEIR STAY. CHARGE NURSE AND PT. ADVOCATE INFORMED PT. AT THAT TIME THAT PT. COULD NOT GO BACK TO HUSBANDS ROOM DUE TO [facility] POLICY.
--- NOTE | 2021-07-18 17:30 | ED.RN ---
PT D/C'D BY OTHER STAFF, PT REFUSED TO LEAVE AND WALKED BACK TO HER COVID POS 'S ROOM 19. PT WAS TOLD BY CHARGE NURSE D/T HER BEING COVID POS SHE HAD TO LEAVE. PT HAD PREVIOUSLY LEFT THE RESTROOM AND WENT TO HER 'S ROOM. PT INFORMED BY STAFF THAT THERE ARE POLICIES IN PLACE, PER PT RULES ARE MEANT TO BE BROKEN. WHEN PT INFORMED BY STAFF THE SHE IS WALKING AROUND POTENTIALLY INFECTING OTHER PEOPLE/PT, PT STATES I DON'T CARE. PT WAVING HAND AT STAFF GET OUT OF MY WAY. 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 PT HAS LEFT THE HOSPITAL.
--- NOTE | 2021-07-18 17:32 | ED.RN ---
PT WS IN ROOM TAKING OUT HER OWN IV'S. WHEN APPROACHED BY NURSES AND EXPLAINED STAFF WILL TAKE IT OUT PT REFUSES AND STATES SHE DOESN'T CARE. EXPLAINED IT IS OUR POLICY THAT WE REMOVE IT AND PT AGAIN STATES SHE DOESN'T CARE. WAS AGGRESSIVE IN HER REFUSAL OF THE STAFF REMOVING HER IV UNTIL SHE WAS NOT GIVEN THE OPTION. THIS NURSE THEN REMOVED THE IV'S TO ENSURE IT WAS PROPERLY HANDLED AND THEN PT WAS LEFT TO GET DRESS. ALSO PT CONTINUES TO ARGUE WHEN THE COVID POLICY AND VISITATION IS EXPLAINED. PT STATES SHE DOESN'T CARE AND WE CAN CALL THE POLICE. HAD EARLIER EXPLAINED THE PT IS NOT TO GO INTO HER HUSBANDS ROOM BECAUSE OF THE COVID POLICY. PT THEN STATED SHE WAS GOING TO THE BATHROOM AND THEN AMBULATED TO HER HUSBANDS ROOM. ALLOWED PT TO STAY IN THERE WHILE HOSPITALIST IN WAS IN THE ROOM AND EXPLAINED THAT SHE WAS NOT ALLOWED TO GO BACK INTO THAT ROOM. THIS WAS A EARLIER INCIDENT. NOW PT RECEIVED HER DISCHARGE PAPERS AND WALKED OUT OF THE ROOM TELLING STAFF TO CALL POLICE AND AMBULATED TO THE HUSBANDS ROOM. SECURITY AND POLICE WERE CALLED. STAFF DID NOT ALLOW HER INTO THE HUSBANDS ROOM PT YELLED AND TRIED TO THREATEN HER WAY IN. SHE STATED SHE WAS CALLING THE POLICE AND ALSO STATED SHE WOULD GET EVERYONE SICK AND DIDN'T CARE WHO SHE EXPOSED IN THE HALLWAYS. THIS WAS SAID MULTIPLE TIMES. EXPLAINED TO HER THAT HER COMPLETE DISREGARD FOR ALL THE RULES AND POLICIES THAT HAVE BEEN IN PLACE SINCE SHE GOT HERE HAS CREATED A MORE STRICT ENVIRONMENT. 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 PT DID TALK WITH THROUGH THE WINDOW OF THE DOOR. THIS NURSE EXPLAINED THAT SHE IS NOW PUTTING HIM AT A GREATER RISK BECAUSE HE IS OUT OF BED WITHOUT HIS OXYGEN ON TO TALK WITH HER. SHE THEN TOLD HIM GOODBYE AND LEFT THE DEPARTMENT. WAS THEN ASSISTED BACK INTO BED AND OXYGEN PLACED. EXPLAINED THE SITUATION TO THE AND HE APOLOGIZED FOR HIS WIFES BEHAVIOR. PTS IS ALSO AWARE OF THE RULES AT THIS TIME AND STATES HIS UNDERSTANDING WELL.
== END 2021-07-18 17:31 | disposition home or self-care (01) ==
PROVIDERS: Emergency Provider Emergency Medicine; PCP Family Medicine; Visit Provider Emergency Medicine
DX: U07.1 COVID-19 (principal); J12.82 Pneumonia due to coronavirus disease 2019; R07.89 Other chest pain; R00.2 Palpitations; J45.909 Unspecified asthma, uncomplicated; E66.9 Obesity, unspecified; Z68.32 Body mass index [BMI] 32.0-32.9, adult; Z79.52 Long term (current) use of systemic steroids; Z82.49 Family history of ischemic heart disease and other diseases of the circulatory system
CPT/HCPCS: 71275; 80048; 84484; 85025; 93005; 96365; 96375; 99285; J7030; Q9967; A4216; J3490

== ENCOUNTER 2021-07-20 14:27 | Outpatient (CLI) | payer SELFPAY ==
--- NOTE | 2021-07-20 15:36 | VDLE_ITS ---
Reason For Study: Pain Procedure LEFT This is a venous duplex using B-mode, color GSV is normal. flow and spectral Doppler. CFV, FV and PopV are compressible. Exam performed in department. T/P Trunk is compressible. The exam was abbreviated due to the COVID 19 PTV is compressible. protocol. LT PerV is compressible. A preliminary report was called and/or faxed to PCP Ch[place]ita. Pt seen in ED 07/18/2021. VL/Venous Duplex US, Unilateral Interpretation Summary Deep veins of the left lower extremity are patent and compressible segmentally. There is no evidence of left lower extremity deep vein thrombosis. The left great saphenous vein aris ears patent and compressible segmentally. Ordering Physician: Carlos Arce Referring Physician: Gary Boogie Performed By: Ama Mahajan RVT
== END 2021-07-20 23:59 | disposition short-term general hospital (02) ==
LOC: CVS 14:28
PROVIDERS: PCP Family Medicine; Referring Provider Emergency Medicine; Visit Provider Emergency Medicine
DX: M79.605 Pain in left leg (principal); Z86.16 Personal history of COVID-19
CPT/HCPCS: 93971

== ENCOUNTER 2021-07-23 07:58 | Emergency (ER) | payer OTHER, SELFPAY ==
[2021-07-23] VITALS (9 sets, daily range): BP systolic 160–183; BP diastolic 69–87; PULSE 67–97; RESP 16–22; TEMP 37–37.4; O2SAT 96–99
--- NOTE | 2021-07-23 08:02 | RAD_ITS ---
STUDY: X-RAY CHEST REASON FOR EXAM: Female, 65 years old. Chest pain TECHNIQUE: Single AP portable view of the chest. COMPARISON: Comparison is made with prior study dated 08/07/2019. FINDINGS: EKG electrodes are seen. Mild increased markings at the right lung base as well as in the lingular segment of the left upper lobe suggestive of either atelectasis and/or early infiltrates. There is no demonstrated pleural abnormality. Normal size heart. Normal mediastinum and dong. Normal visualized pulmonary arteries. Normal visualized aortic arch and descending thoracic aorta. There are degenerative changes of the visualized thoracic spine. Normal visualized ribs, clavicles, and shoulders. There is no demonstrated abnormality of the visualized soft tissue structures of the upper abdomen. RAD/Chest 1 View (Portable) IMPRESSION: Findings suggestive of either atelectasis and/or early infiltrates involving the right lower lobe and lingular segment of the left upper lobe. Electronically Signed: Karan Prado MD at 9:18 EST , Service support ,
--- NOTE | 2021-07-23 08:02 | EKG12_ITS ---
Test Reason : CHEST TIGHTNESS Blood Pressure : / mmHG Vent. Rate : 078 BPM Atrial Rate : 078 BPM P-R Int : 150 ms QRS Dur : 092 ms QT Int : 368 ms P-R-T Axes : 055 024 019 degrees QTc Int : 419 ms Sinus rhythm with occasional Premature ventricular complexes Nonspecific T wave abnormality Confirmed by DANNA MILLER, MARY ([id number]), medical editor LAUREANO NAIDU ([id number]) on 07/26/2021 11:02:53 AM Referred By: DIANE Confirmed By:MARY CLAY MD
--- NOTE | 2021-07-23 08:53 | EDS_ITS ---
HPI History of Present Illness Chief Complaint: Chest Pain Narrative Narrative: 65-year-old female presenting with chest pain. She describes it as a band wrapping around the lower aspect of her chest and goes all the way around. She states that she was seen previously on 07/18/2021 for similar chest pain. She had a change in her troponin and states that they wanted to do a third troponin however she did not want to stay reportedly. Patient began symptoms of COVID on 04 July. He states that during the night she notices her pulse ox will drop to 90. During the day it is normal. Patient states he has a history of asthma and her primary care physician set up oxygen for home at night. She is been taking prednisone and doing aerosols at home. She states this morning she felt like she did not need an aerosol. Patient states that she had a run of palpitations that lasted about 20 minutes and she states it was very intense. She has a [employer] mobile aris and states that it showed her she had a run of atrial fibrillation. Patient has no history of this. She is not on ant icoagulation or rate control medication. [facility] Medical History Abdominal pain Acid reflux Asthma Asthma Cholecystitis Environmental allergies Gastritis Positive colorectal cancer screening using Cologuard test Tubulovillous adenoma of colon Home Medications esomeprazole magnesium 20 mg capsule,delayed release 20 mg PO QHS cap 11/23/18 [History Last Taken 05/04/20 05:30 20 MG] montelukast 10 mg tablet 10 mg PO QPM 11/23/18 [History Last Taken Unknown] albuterol sulfate 1 - 2 puff INHALATION Q4H PRN PRN 11/27/18 [History Last Taken 12/13/18] albuterol sulfate 2.5 mg INHALATION Q6H PRN PRN 11/27/18 [History Last Taken 05/04/20 05:30 2.5 MG] albuterol sulfate 90 mcg/actuation aerosol inhaler 2 puff INHALATION Q6H PRN 03/12/20 [History Last Taken Unknown] cholecalciferol (vitamin D3) 125 mcg (5,000 unit) capsule 125 mcg PO DAILY 03/12/20 [History Last Taken Unknown] ivermectin 1 % topical cream 1 applic TOPICAL PRN PRN g 03/12/20 [History Last Taken Unknown] prednisone 30 mg PO DAILY 07/23/21 [History Last Taken Unknown] Allergy/AdvReac Type Severity Reaction Status Date / Time nitrile Allergy Severe shortness Verified 07/23/21 07:59 of breath and rash dexlansoprazole Allergy Mild Unknown Verified 07/23/21 07:59 [From Dexilant] Iodinated Contrast Media Allergy Mild Hives Verified 07/23/21 07:59 bee pollen Allergy Anaphylaxis Verified 07/23/21 07:59 bee venom protein (honey bee) Allergy Anaphylaxis Verified 07/23/21 07:59 bisacodyl Allergy Itching Verified 07/23/21 07:59 [From Dulcolax (bisacodyl)] erythromycin base Allergy Rash Verified 07/23/21 07:59 Fish Containing Products Allergy Rash Verified 07/23/21 07:59 fish derived Allergy Rash Verified 07/23/21 07:59 fish oil Allergy Rash Verified 07/23/21 07:59 lansoprazole [From Prevacid] Allergy Other Verified 07/23/21 07:59 meloxicam [From Mobic] Allergy Rash Verified 07/23/21 07:59 shellfish derived Allergy Anaphylaxis Verified 07/23/21 07:59 cefotetan AdvReac Diarrhea Verified 07/23/21 07:59 scopolamine AdvReac blurred Verified 07/23/21 07:59 vision,syncope WAX FROM FLOORS Allergy Other Uncoded 07/23/21 07:59 Family History Father Hypertension Kidney disease Cancer skin, kidney, prostate Mother Diabetes Hypertension Thyroid disorder Heart disease Kidney disease Hypercholesteremia Grandmother Breast cancer Brother Heart disease Aunt Breast cancer Surgical History Benign neoplasm of parotid gland History of cholecystectomy (~2019) History of colectomy (~2019) History of colonoscopy (~11/30/18) History of esophagogastroduodenoscopy (EGD) (~11/30/18) History of hysterectomy S/P lumpectomy, left breast S/P tonsillectomy S/P wisdom tooth extraction Social History Smoking Status: Never smoker alcohol intake: never ROS ROS ED Constitutional Constitutional ED: Denies chills or fever(s) Eyes Eyes: Denies blurry vision or change in vision ENT ENT ED: Denies rhinorrhea or sore throat Cardiovascular Cardiovascular: Reports chest pain, palpitations and racing heartbeat Respiratory/Chest Respiratory/Chest: Reports cough and dyspnea Gastrointestinal Gastrointestinal: Denies abdominal pain, nausea or vomiting Genitourinary Genitourinary ED: Denies dysuria or hematuria Musculoskeletal Musculoskeletal: Denies arthralgias or myalgias Integumentary Denies rash Neurologic Neurologic: Denies headache(s), paresthesias or weakness EXAM Physical Exam Const Vital Signs: 07/23/21 08:00 07/23/21 08:05 07/23/21 08:07 Temperature 99.3 F H Temperature Source Temporal Pulse Rate 97 90 Respiratory Rate 18 20 H Respiratory Effort Short of Breath Respiratory Pattern Normal Blood Pressure 183/87 H 183/87 H Blood Pressure Mean 119 119 Pulse Ox 99 98 98 Oxygen Delivery Method Room Air Room Air Room Air 07/23/21 08:14 07/23/21 09:14 07/23/21 10:02 Temperature 99.3 F H 98.6 F Temperature Source Temporal Oral Pulse Rate 88 77 74 Respiratory Rate 16 18 16 Respiratory Effort Respiratory Pattern Blood Pressure 183/87 H 180/76 H 160/69 H Blood Pressure Mean 119 110 99 Pulse Ox 98 97 98 Oxygen Delivery Method Room Air Room Air Room Air 07/23/21 11:42 07/23/21 12:23 07/23/21 12:44 Temperature Temperature Source Pulse Rate 69 67 67 Respiratory Rate 18 20 H 22 H Respiratory Effort Respiratory Pattern Blood Pressure 165/79 H Blood Pressure Mean Pulse Ox 97 97 96 Oxygen Delivery Method Room Air Room Air Positive well nourished General Appearance ED: NAD; Negative for pallor HEENT Reports moist mucous membranes normocephalic and atraumatic Eyes PERRL and EOMs intact bilaterally General Eye ED: Negative for pale conjunctiva or scleral icterus Neck no lymphadenopathy and supple Resp normal respiratory effort and clear to auscultation bilaterally Effort and Inspection: respiratory distress Cardio regular rate and regular rhythm Extremity normal to inspection General Extremety ED: Negative for edema or tenderness General Extremity: Negative for edema Neuro oriented x3 Sensorium / Orientation: awake and alert Psych mental status grossly normal Skin General Skin Exam: Negative for jaundice or pallor Heart Score History: Moderately Suspicious ECG: Normal Age: >45 - <65 years Risk Factors: 1 or 2 Risk Factors Score: 3 MDM MDM MDM Narrative Medical decision making narrative: I reviewed the patient's [employer] mobile aris and it does appear that she has had runs of PVCs. Its not clear if this is actual atrial fibrillation. She states that she could feel when her heart went back into rhythm. I obtained an EKG and on my interpretation it shows a normal sinus rhythm with a ventricular rate of 78 bpm without sign of ischemic change. There are PVCs present. This is also noted on the monitor. CBC and BMP are within normal limits with exception of a slight hypokalemia with a potassium of 3.3.. High-sensitivity troponin is 15 initially. Chest x-ray on my interpretation shows infiltrates in the right lower lobe and left upper lobe. It is unclear that this is remnants from COVID-19 however the patient is not hypoxic, tachypneic, tachycardic. She has no leukocytosis or left shift. I do not believe this is a bacterial infection. Patient previously had a CTA chest the other day and I do not believe she needs repeat CTA or a D-dimer. Delta troponin is 17 and therefore there is no significant change. Discussed with Dr. Escalante who recommended that the patient make an appointment for his office. She is out of quarantine. She was given these recommendations and return precautions. Impression: 1. Chest pain noncardiac Lab Data Attestation: I reviewed the patient's lab results. Labs: Laboratory Results - last 24 hr 07/23/21 07/23/21 07/23/21 08:30 08:30 09:57 WBC 10.2 RBC 4.96 Hgb 13.8 Hct 42.7 MCV 86.1 MCH 27.8 MCHC 32.3 RDW Std Deviation 40.9 RDW Coeff of Karen 13.2 Plt Count 294 MPV 10.0 Immature Gran % (Auto) 1.600 H Neut % (Auto) 58.7 Lymph % (Auto) 29.6 Grimes % (Auto) 9.2 Eos % (Auto) 0.7 Baso % (Auto) 0.2 Absolute Neuts (auto) 6.0 Absolute Lymphs (auto) 3.00 Nucleated RBC % 0 Sodium 141 Potassium 3.3 L Chloride 106 Carbon Dioxide 29.0 Anion Gap 6 BUN 12 Creatinine 0.86 Estim Creat Clear Calc 2.64 Est GFR (MDRD) Af Amer 85 Est GFR (MDRD) Non-Af 70 BUN/Creatinine Ratio 13.9 Glucose 94 Calcium 9.0 Troponin I High Sens 15 Cancelled 07/23/21 10:32 WBC RBC Hgb Hct MCV MCH MCHC RDW Std Deviation RDW Coeff of Karen Plt Count MPV Immature Gran % (Auto) Neut % (Auto) Lymph % (Auto) Grimes % (Auto) Eos % (Auto) Baso % (Auto) Absolute Neuts (auto) Absolute Lymphs (auto) Nucleated RBC % Sodium Potassium Chloride Carbon Dioxide Anion Gap BUN Creatinine Estim Creat Clear Calc Est GFR (MDRD) Af Amer Est GFR (MDRD) Non-Af BUN/Creatinine Ratio Glucose Calcium Troponin I High Sens 17 Radiography Diagnostic Testing: Clinical Impression(s) from Imaging Studies Chest X-Ray 07/23/21 08:02 IMPRESSION: Findings suggestive of either atelectasis and/or early infiltrates involving the right lower lobe and lingular segment of the left upper lobe. Electronically Signed: Karan Prado MD at 9:18 EST , Service support , Discharge Plan Triage Chief Complaint: Chest Pain ED Provider: Shantanu Castillo Dx/Rx/DC Orders Instructions: ED Chest Pain, Noncardiac Prescriptions: No Action esomeprazole magnesium [Nexium] 20 mg capsule,delayed release(DR/EC) 20 mg PO QHS RF: 0 montelukast [Singulair] 10 mg tablet 10 mg PO QPM RF: 0 albuterol sulfate [ProAir HFA] 90 mcg/actuation HFA aerosol inhaler 2 puff INHALATION Q6H PRN (Reason: Asthma) RF: 0 ivermectin 1 % cream 1 applic TOPICAL PRN PRN (Reason: ROSCEA) RF: 0 cholecalciferol (vitamin D3) 125 mcg (5,000 unit) capsule 125 mcg PO DAILY RF: 0 albuterol sulfate 1 PUFF inhaler 1 - 2 puff inhalation Q4H PRN PRN (Reason: Asthma) RF: 0 albuterol sulfate 2.5 MG/3 ML solution for nebulization 2.5 mg inhalation Q6H PRN PRN (Reason: Asthma) RF: 0 prednisone 10 mg tablet 30 mg PO DAILY RF: 0 Primary Care Provider: Gary Boogie Referrals: Gary Boogie MD [Primary Care Provider] - Andi Escalante MD [STAFF PHYSICIAN] - As soon as possible Disposition Disposition: Home, Self Care Discharge Date/Time: 07/23/21 12:45
[2021-07-23 09:02] LABS: Basophil# 0.02 X10^3/uL; Basophil% 0.2 % (0-1); Eosinophil# 0.07 X10^3/uL; Eosinophils% 0.7 % (0-5); Hematocrit 42.7 % (37-47); Hemoglobin 13.8 g/dL (12.0-15.0); Lymphocyte % 29.6 % (19-41); Mean Corp Hgb Conc 32.3 g/dL (32-36); Mean Corpuscular Hgb 27.8 pg (27.0-32.0); Mean Corpuscular Volume 86.1 fL (81-99); Monocyte# 0.93 X10^3/uL; Monocyte% 9.2 % (0-10); NRBC Flagged by Analyzer 0 % (0-5); Neutrophil # 5.97 X10^3/uL (2.7-7.7); Neutrophil % 58.7 % (47-70); Platelet Count 294 K/mm3 (150-450); RBC Distribution Width CV 13.2 % (11.6-14.6); RBC Distribution Width SD 40.9 fl (35.1-43.9); Red Blood Count 4.96 M/mm3 (4.2-5.4); White Blood Count 10.2 K/mm3 (4.4-11.0)
[2021-07-23 09:04] LABS: Anion Gap 6 (5-15); BUN 12 mg/dL (7-18); BUN/Creat Ratio 13.9 RATIO (10-20); Chloride 106 mmol/L (98-107); Creatinine, Serum 0.86 mg/dL (0.55-1.02); EST Glomerular Filtration Rate 70 mL/min (>60); Est Glom Filt Rate - Afr Amer 85 mL/min (>60); Estimated Creatinine Clearance 2.64 ml/min; Glucose 94 mg/dL (74-106); Potassium 3.3 mmol/L (3.5-5.1); Sodium Level 141 mmol/L (136-145); Troponin-I HS 15 pg/mL (3.0-54.0)
[2021-07-23 10:55] LABS: Troponin-I HS 17 pg/mL (3.0-54.0)
== END 2021-07-23 12:45 | disposition home or self-care (01) ==
PROVIDERS: Emergency Provider Student in an Organized Health Care Education/Training Program; PCP Family Medicine; Visit Provider Student in an Organized Health Care Education/Training Program
DX: R07.89 Other chest pain (principal); J45.909 Unspecified asthma, uncomplicated; K21.9 Gastro-esophageal reflux disease without esophagitis; Z79.899 Other long term (current) drug therapy
CPT/HCPCS: 71045; 80048; 84484; 85025; 93005; 99285; A4216

== ENCOUNTER → 2022-10-20 | Outpatient (CLI) | payer MEDICARE, BC, SELFPAY ==
--- NOTE | 2022-10-20 14:25 | BI_ITS ---
MAMMOGRAPHY - BILATERAL SCREENING 3-D TOMOSYNTHESIS REASON FOR EXAM: Female, 67 years old. SCREENING PERTINENT HISTORY: Grandmother with breast cancer, previous biopsies.. TECHNIQUE: 2-D mammograms and 3-D Tomosynthesis of the breast (s) were performed. CAD was performed. COMPARISON: 11/14/2018 FINDINGS: The breast composition is heterogeneously dense that can obscure small breast masses. Scattered benign calcifications are seen. No dense spiculated masses or suspicious microcalcifications are identified. No architectural distortion is identified. There is no skin thickening or retraction. Stable appearance of nodule in the central inferior left breast which has been previously biopsied. Stable appearance of the biopsy clip. There has been no significant change since the prior study. BI/SCRN MAMM (CAD)W/ANISA BILAT IMPRESSION: No mammographic signs of malignancy. Routine yearly mammograms recommended. ASSESSMENT CATEGORY: BIRADS Category 2: Benign. A letter regarding these results will be sent to the patient by the facility within 30 days. FOLLOW UP RECOMMENDATION: Yearly follow up mammogram recommended. (A) Approximately 10% of breast cancers are not detected by mammography. A normal mammogram should not delay biopsy of a clinically suspicious abnormality. Electronically Signed: Maurice Dominguez MD at 7:46 EDT ,
--- NOTE | 2022-10-20 14:32 | BD_ITS ---
STUDY: DUAL ENERGY X-RAY ABSORPTIOMETRY / DXA REASON FOR EXAM: Female, 67 years old. 733.00OsteoporosisBONE DENSITY REASON FOR EXAM TECHNIQUE: Bone Mineral Density (BMD) measurements of lumbar spine and bilateral hips were obtained. COMPARISON: Comparison is made with prior study dated July 30, 2013. FINDINGS: Lumbar Spine (L1-L4): g/cm2 (1.112) / T-score (0.6) / Z-score (2.4) Findings are suggestive of normal bone density with a low fracture risk. Left Femur Total: g/cm2 (1.010) / T-score (0.6) / Z-score (1.8) Left Femoral Neck: g/cm2 (0.855) / T-score (0.1) / Z-score (1.6) Right Femur Total: g/cm2 (1.028) / T-score (0.7) / Z-score (1.9) Right Femoral Neck: g/cm2 (0.795) / T-score (-0.5) / Z-score (1.0) BD/Dexa Bone Density Study IMPRESSION: The patient is considered normal as outlined below according to World Rory Organization (WHO) criteria with a low fracture risk. Reference Information: The T-score is the number of standard deviations above or below the standard which is normal for young adults at their peak bone mineral density. The World Health Organization (WHO) interprets the T-scores as follows: Above -1 Normal bone density Between -1 and -2.5 Osteopenia Equal to / or below -2.5 Osteoporosis As a practical clinical guideline, osteopenia may be graded as follows: Mild -1 through -1.5 Moderate -1.6 through -2.0 Severe -2.1 through -2.4 The Z-score is the number of standard deviations above or below age-matched controls. A Z-score of less than -1.5 would be considered abnormal. References: 1. NIH Osteoporosis and Related Bone Diseases www osteo.org 2. International Society for Clinical Densitometry www iscd.org 3. National Osteoporosis Foundation www nof.org Electronically Signed: Karan Prado MD at 12:09 EDT ,
== END | disposition home or self-care (01) ==
LOC: OPBD 14:23
PROVIDERS: PCP Family Medicine; Referring Provider Family Medicine; Visit Provider Family Medicine
DX: Z00.00 Encounter for general adult medical examination without abnormal findings (principal); Z12.31 Encounter for screening mammogram for malignant neoplasm of breast; U09.9 Post COVID-19 condition, unspecified; R00.2 Palpitations; J45.909 Unspecified asthma, uncomplicated; B07.0 Plantar wart; M81.0 Age-related osteoporosis without current pathological fracture
CPT/HCPCS: 77063; 77067; 77080

== ENCOUNTER → 2023-10-23 | Outpatient (CLI) | payer MEDICARE, BC, SELFPAY ==
--- NOTE | 2023-10-23 15:49 | BI_ITS ---
MAMMOGRAPHY - BILATERAL SCREENING REASON FOR EXAM: Female, 68 years old. Routine annual screening examination. PERTINENT HISTORY: Aunt with breast cancer. History of prior right stereotactic breast biopsies as well as left excisional breast biopsy and ultrasound-guided left breast biopsy. TECHNIQUE: Digital bilateral breast anisa (3D mammographic acquisition) in the CC and MLO projections. 2-D mediolateral oblique (MLO) and craniocaudad (CC) views of both breasts were obtained. CAD: Full Field Digital Mammography with Computer Added Detection was performed. COMPARISON: Comparison is made with prior examination dated October 20, 2022 and June 25, 2020. FINDINGS: Breast Composition: The breasts are heterogeneously dense, which may obscure small masses. There are no dominant masses or suspicious calcifications. 2 tissue markers are seen in the superior lateral retroareolar region of the right breast. A tissue clip marker is also seen in the deep central slightly medial aspect of the left breast. Stable 8.1 mm x 6.6 mm nodule in the inferior slightly medial aspect of the left breast. A tissue clip marker is seen within. No other significant abnormalities are identified. There has been no significant change since the prior study. BI/SCRN MAMM (CAD)W/ANISA BILAT IMPRESSION: Stable bilateral screening mammogram. Yearly follow-up mammogram recommended. (A) ASSESSMENT CATEGORY: BIRADS Category 2: Benign. A letter regarding these results will be sent to the patient by the facility within 30 days. Approximately 10% of breast cancers are not detected by mammography. A normal mammogram should not delay biopsy of a clinically suspicious abnormality. [id number] Electronically Signed: Karan Prado MD at 8:12 EDT ,
== END | disposition home or self-care (01) ==
LOC: OPBI 15:47
PROVIDERS: PCP Family Medicine; Referring Provider Nurse Practitioner Family; Visit Provider Nurse Practitioner Family
DX: Z12.31 Encounter for screening mammogram for malignant neoplasm of breast (principal); Z80.3 Family history of malignant neoplasm of breast
CPT/HCPCS: 77063; 77067

== ENCOUNTER 2024-01-05 13:03 | Outpatient (CLI) | payer MEDICARE, BC, SELFPAY ==
--- NOTE | 2024-01-05 13:08 | CT_ITS ---
INDICATION: SOB/PALPS /HTN EXAMINATION: CT CHEST WITHOUT CONTRAST - CT Chest W/O Contrast Injection TECHNIQUE: Helically acquired images were obtained of the chest. A radiation dose optimization technique was used for this scan. IV Contrast dosage and agent: None. COMPARISON: 07/18/2021 FINDINGS: Limited CT of the chest obtained through the heart for performance of coronary artery calcium scoring which will be read by Cardiology. The entire lungs are not included in the study. LUNGS, PLEURA AND LARGE AIRWAYS: Some bilateral linear scarring. No noncalcified nodule or mass. No pleural effusion or thickening. No pneumothorax. HEART AND PERICARDIUM: Heart size is normal. No pericardial effusion. CORONARY ARTERIES: Coronary artery calcification is not seen. VESSELS: Thoracic aorta is not dilated. MEDIASTINUM AND TRESA: No mediastinal or hilar adenopathy. Esophagus is unremarkable. No hiatal hernia. UPPER ABDOMEN: Diffusely decreased attenuation of the hepatic parenchyma consistent with fatty infiltration. BONES: No suspicious lytic or blastic abnormality. CT/Limited Chest CT Cardiac Only IMPRESSION: Negative CT chest without contrast. Fatty infiltration of liver. Electronically Signed: Antione Clarke MD at 13:30 EDT ,
--- NOTE | 2024-01-06 12:23 | CA.SCORE ---
Calcium Scoring Date of Study:: 01/05/24 Coronary Calcium Scoring: High-resolution Computed Tomographic imaging of the chest was performed on [01/05/24 ], with particular attention paid to the coronary arteries. Images from the examination were analyzed for the presence and extent of coronary artery calcification , using coronary calcium quantification software. The patient tolerated the procedure well and there were no complications. The results of the coronary calcification analysis are provided below. Findings Coronary Artery Left Main (LM): 0 Left Anterior Descending (LAD): 0 Left Circumflex (LCX): 0 Right Coronary Artery (RCA): 0 Total Agatston Score: 0 Percentile Rankin Calcium Scoring Interpretation: Different methods to categorize the overall amount of coronary plaque. Overall amount CAC SIS Visual of coronary plaque P1 Mild -100 <2 1-2 vessels with mild amount of plaque P2 Moderate 101-300 3-4 1-2 vessels with moderate amount, 3 vessels with mild amount of plaque P3 Severe 301-999 5-7 3 vessels with moderate amount, 1 vessel with severe amount of plaque P4 Extensive >1000 >8 2-3 vessels with severe amount of plaque Conclusion: Coronary calcium score 0
== END 2024-01-05 23:59 | disposition home or self-care (01) ==
PROVIDERS: PCP Family Medicine; Referring Provider Nurse Practitioner Family; Visit Provider Nurse Practitioner Family
DX: R06.02 Shortness of breath (principal); R00.2 Palpitations; I10 Essential (primary) hypertension; U09.9 Post COVID-19 condition, unspecified
CPT/HCPCS: 75571; 76380

== ENCOUNTER → 2024-01-18 | Outpatient (CLI) | payer MEDICARE, BC, SELFPAY ==
--- NOTE | 2024-01-18 14:14 | CT_ITS ---
STUDY: CT FACIAL BONES WITHOUT CONTRAST REASON FOR EXAM: Female, 68 years old. Recurring sinus infections. Prior parotid mass removal. RADIATION DOSAGE (If Supplied By Facility): CTDIvol = ( 33.06 ) mGy, DLP = ( 833.85 ) mGycm TECHNIQUE: The patient was scanned in a multi detector CT scanner. Sagittal and coronal images were reconstructed. Individualized dose optimization techniques were used for this CT. COMPARISON: None. FINDINGS: Normal soft tissue structures. Normal orbital mcneal and orbital contents. Normal nasal bones and anterior nasal spine. Normal facial bones. There is no demonstrated fracture. There is a 6.8 mm polyp or retention cyst along the inferior medial wall of the right maxillary sinus. CT/Sinus/Facial Bone IMPRESSION: 6.8 mm polyp or retention cyst along the inferior medial wall of the right maxillary sinus. Electronically Signed: Karan Prado MD at 14:42 EDT ,
== END | disposition home or self-care (01) ==
LOC: CT 14:14
PROVIDERS: PCP Family Medicine; Referring Provider Otolaryngology; Visit Provider Otolaryngology
DX: J32.9 Chronic sinusitis, unspecified (principal)
CPT/HCPCS: 70486

== ENCOUNTER → 2024-01-27 | Outpatient (CLI) | payer MEDICARE, BC, SELFPAY ==
--- NOTE | 2024-01-27 07:38 | MRI_ITS ---
STUDY: MRI RIGHT KNEE REASON FOR EXAM: Female, 68 years old. possible injury during [employer] classes, possible injury 26yrs ago, pain medial to anterior knee joint, no surgery TECHNIQUE: Standardized fat and water weighted pulse sequences were obtained in all 3 orthogonal planes. COMPARISON: X-ray of the right knee dated January 09, 2024 FINDINGS: No demonstrated marrow edema or fracture or osteochondral defect. A small horizontal tear is present in one third aspect and posterior horn of the medial meniscus, see image #12/30 series 7. Normal remaining aspects of the meniscus. There is diffuse, greater than 50% thickness articular cartilage loss of the medial femorotibial compartment. Normal medial femoral condyle and tibial plateau. Normal medial collateral ligamentous complex (MCL). Normal distal semimembranosus, gracilis and semitendinosus tendons. Normal lateral meniscus. Normal hyaline cartilage of the lateral femorotibial compartment. Normal lateral femoral condyle and tibial plateau. Normal proximal tibiofibular articulation. Normal lateral collateral (fibular) ligament. Normal popliteus tendon. Normal biceps femoris tendon. Normal anterior cruciate ligament (ACL). Normal posterior cruciate ligament (PCL). Normal congruent patellofemoral articulation. There is diffuse, less than 50% thickness articular cartilage loss of the patellofemoral compartment. Normal medial and lateral patellar retinaculum. Normal quadriceps tendon. Normal patellar tendon. Normal Hoffa''s fat pad. There is a small volume joint effusion. Mild anterior subcutaneous edema is present. The otherwise visualized osseous structures are unremarkable. MRI/Lower Ext Joint Only (Routine) IMPRESSION: 1. Small horizontal tear in the posterior horn of medial meniscus 2. Small joint effusion Electronically Signed: Mic Leary MD at 15:36 EDT ,
== END | disposition home or self-care (01) ==
LOC: MRI 07:34
PROVIDERS: PCP Family Medicine; Referring Provider Orthopaedic Surgery Sports Medicine; Visit Provider Orthopaedic Surgery Sports Medicine
DX: M25.561 Pain in right knee (principal)
CPT/HCPCS: 73721

== ENCOUNTER → 2024-11-12 | Outpatient (CLI) | payer MEDICARE, BC, SELFPAY ==
--- NOTE | 2024-11-12 08:17 | BI_ITS ---
EXAM: SCRN MAMM (CAD)W/AINSA BILAT DATE: 11/12/2024 CLINICAL HISTORY: F, Age 69 y/o , SCREENING BREAST CANCER RISK ASSESSMENT: Not reported TECHNIQUE: Bilateral screening digital breast tomosynthesis with 2D and 3D images. Computer aided detection. COMPARISON: Prior exam(s) were compared FINDINGS: TISSUE DENSITY: The breast tissue is heterogenously dense, which may obscure small masses. Bilateral Breast Mammographic Findings: No suspicious masses, calcifications or other abnormalities are identified. BI/SCRN MAMM (CAD)W/ANISA BILAT IMPRESSION: OVERALL FINAL ASSESSMENT: BIRADS 1 NEGATIVE RECOMMENDATION: Routine annual follow-up in 1 Year A letter with findings and recommendations will be mailed to the patient. Reading Location: [id number]
== END | disposition home or self-care (01) ==
LOC: OPBI 08:15
PROVIDERS: PCP Family Medicine; Referring Provider Nurse Practitioner Family; Visit Provider Nurse Practitioner Family
DX: Z12.31 Encounter for screening mammogram for malignant neoplasm of breast (principal)
CPT/HCPCS: 77063; 77067